=== PATIENT | female | born 2000 | race Caucasian/White ===

== ENCOUNTER 2025-02-18 17:03 | Emergency (ER) | payer SELFPAY ==
[2025-02-18 17:05] VITALS: BP 110/81; PULSE 86; RESP 16; TEMP 37.2; O2SAT 98
--- NOTE | 2025-02-18 17:17 | ED_ITS ---
HPI - Wound/Laceration General Chief Complaint: Wound/Laceration Stated Complaint: wound check Time Seen by Provider: 02/18/25 17:17 Source: patient Mode of arrival: ambulatory Limitations: no limitations History of Present Illness HPI narrative: 24-year-old female with a history of anxiety / depression had recurrent pilonidal abscess which was excised and a rubber catheter was placed from the pilonidal sinus into the pilonidal tract 1 week ago postprocedure the patient received antibiotics. Over the course of the last few days the drainage has decreased. The rubber catheter was supposed to be removed after 1 week. The patient does not want to go back to [facility] way she had her initial surgery. She presents to the ED for removal of the rubber catheter. No fever or chills. Onset (ago): day(s) ( Seven days) Location: other ( lower back) Body four view annotation: 2 1. pilonidal sinus opening which has been widened and measures 1-1/2 cm 2. rubber band passing from the pilonidal sinus opening and exits at the bottom of the pilonidal tract 3. the rubber band comes out at the bottom of the gluteal cleft. Patient tetanus UTD: Yes Review of Systems 2 Review of Systems: All systems reviewed & are unremarkable except as noted in HPI and below PMFSH Past Medical History Medical History (Updated 02/18/25 @ 17:46 by Raza Black MD) Anxiety and depression Chronic recurrent pilonidal cyst Exam 2 Narrative: vitals are stable Const: General: healthy appearing Nutritional Appearance: well nourished Orientation/consciousness: patient oriented x3 Limitations: no limitations HENMT: Head: normal to inspection Ears: external ears normal F heather/Nose/Sinus: Normal external nose present Face and sinus: normal facial exam Mouth: Yes Normal oral and palatal mucosa present Throat: posterior oropharynx normal Eyes: Conjunctivae: conjunctivae normal Pupils: Equal, round and reactive pupils present EOM: EOMs intact bilaterally Direct Ophthalmoscopy: no photophobia Neck: Neck: normal visual inspection, no lymphadenopathy and no meningeal signs Chest: Chest palpation & inspection: normal inspection of the chest Resp: Effort & Inspection: normal respiratory effort Auscultation: clear to auscultation bilaterally Cardio: Rate: regular rate Rhythm: regular rhythm GI: GI Palp: Yes Soft to palpation Auscultation: normal bowel sounds Back/Spine/Pelvis: Back: no CVA tenderness Skin: General skin exam: normal color Other: lower back has a 1.5 cm cutaneous ulcer . The ulcer is healthy and looks beefy red. a rubber-band passes through the pilonidal sinus opening and comes out at the bottom of the intergluteal cleft. Neuro: General: patient oriented x3, moves all extremities, no meningeal signs, no focal motor deficits and CN's II-XI intact bilaterally Cranial nerves: Yes Nystagmus not present Speech: normal speech Gait exam (Neuro): Normal gait present Extrem: General: normal to inspection and no clubbing, cyanosis or edema Psych: Mental Status: mental status grossly normal Affect: normal affect Attitude: cooperative Course Course Emergency Course: Status post Pilonidal abscess treatment-- the rubber band/drain passing through the pilonidal abscess is opened Vital Signs Vital signs: Vital Signs Temperature 37.2 C 02/18/25 17:05 Pulse Rate 86 02/18/25 17:05 Respiratory Rate 16 02/18/25 17:05 Blood Pressure 110/81 02/18/25 17:05 Pulse Oximetry 98 02/18/25 17:05 Oxygen Delivery Room Air 02/18/25 17:05 Temperature 37.2 C 02/18/25 17:05 Pulse Rate 86 02/18/25 17:05 Respiratory Rate 16 02/18/25 17:05 Blood Pressure 110/81 02/18/25 17:05 Pulse Oximetry 98 02/18/25 17:05 Oxygen Delivery Room Air 02/18/25 17:05 MDM - Wound/Laceration MDM Narrative Medical decision making narrative: status post pilonidal abscess treatment Differential Diagnosis Differential diagnosis: Likely abscess Discharge Plan Discharge Clinical Impression: Pilonidal abscess Patient Disposition: Home Condition: Stable Instructions: Antibiotic Form, Pilonidal Cyst Excision (DC) Patient Language: [place] Follow-up/Referrals: UNKNOWN,DOCTOR [Non-Staff] - Time of Disposition: 17:46
--- OUTSIDE RECORDS SUMMARY | 2025-02-18 17:42 | XMS_ITS | Encounter Summary ---
Author Organization [facility] Address [address] [place] [address] Care Team Providers Care Artificial Flowers Starcher Name Role Phone Flavio Barraganen Primary Care Provider Reason for Visit * Reason Onset Date Comments Medication Refill 02/17/2025 Encounter Details Date Type Department Care Team (Late st Contact Info) Description 02/17/[address] [facility] [place] [address] [place] [address] [facility] [address] [place] [address] Mild intermittent asthma with acute exacerbation; PTSD (post-traumatic stress disorder); SHANDRA (generalized anxiety disorder); Moderate episode of recurrent major depressive disorder (CMS/HCC) Social History Tobacco Use Types Packs/Day Years Used Date Smoking Tobacco: Unknown Feeling Safe Answer Date Recorded Are you in a relationship wi th someone who hurts you emotionally and/or physically? No 05/01/2024 Comments Unknown Sex and Gender Information Value Date Recorded Sex Assigned at Not on file Legal Sex Female 6:01 PM CDT Gender Identity Not on file Sexual Orientation Not on file documented as of this encounter Miscellaneous Notes * Telephone Encounter - Alexia Melton RN - 02/17/2025 4:05 PM CDT Disp Refills Start End albuterol sulfate HFA 90 mcg/actuation aerosol inhaler 8.5 Gram 3 10/22/2024 -- Sig - Route: Take 2 Puffs by inhalation every 6 hours as needed for Shortness of Breath. - Inhalation Disp Refills Start End sertraline (Zoloft) 50 mg tablet 90 Tablet 0 01/13/2025 -- Sig - Route: Take 1 Tablet (50 mg) by mouth daily. - Oral I have verified this refill request with current med list. Last office visit and next office visit are up-to-date. Recent Visits Date Type Provider Dept 01/13/25 Video Visit [facility] 11/24/24 Video Visit [facility] 11/20/24 Video Visit [facility] 10/22/24 Office Visit [facility] Showing recent visits within past 540 days with a meds authorizing provider and meeting all other requirements Future Appointments Date Type Provider Dept 07/16/25 Appointment Lizette Barragan DO [facility] Showing future appointments within next 365 days with a meds authorizing provider and meeting all other requirements Pending due to warning. documented in this encounter Plan of Treatment Upcoming Encounters Date Type Department Care Team (Late st Contact Info) Description 03/06/2025 11:00 AM CDT Video Visit [address] [phone] [place] [address] [phone] 07/16/2025 2:30 PM CDT Office Visit [address] [phone] Lizette Barragan DO [address] [place] [phone] documented as of this encounter Visit Diagnoses Diagnosis Mild intermittent asthma with acute exacerbation Unspecified asthma, with exacerbation PTSD (post-traumatic stress disorder) Posttraumatic stress disorder SHANDRA (generalized anxiety disorder) Generalized anxiety disorder Moderate episode of recurrent major depressive disorder (CMS/HCC) documented in this encounter Additional Health Concerns Assessment Noted Time PHQ-9 Depression Total Score: 1 11/24/19 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
--- OUTSIDE RECORDS SUMMARY | 2025-02-18 17:42 | XMS_ITS | Clinical Summary ---
Author Organization [facility] Address [address] [place] [address] Care Team Providers Care Transmitter Supervisor Name Role Phone None, Provider MD Primary Care Provider Unavaila ble Allergies No known active allergies Medications sulfamethoxazol e-trimethoprim (BACTRIM DS) 800-160 MG tablet Take 1 tablet by mouth 2 (two) times daily for 10 days. 20 tablet 02/12/2025 02/23/20 25 Active ketorolac (TORADOL) 10 MG tablet Take 1 tablet (10 mg total) by mouth every 6 (six) hours as needed for Pain. 20 tablet 02/09/2025 02/15/20 25 doxycycline hyclate (VIBRAMYCIN) 100 MG capsule Take 1 capsule (100 mg total) by mouth 2 (two) times daily for 7 days. 14 capsule 02/09/2025 02/17/20 25 ketorolac (TORADOL) 10 MG tablet Take 1 tablet (10 mg total) by mouth 4 (four) times daily as needed for Pain. 20 tablet 02/12/2025 02/18/20 25 Encounters Date Type Department Care Team Description 02/12/2025 12:50 PM CDT - 02/12/2025 7:07 PM CDT Emergency [facility] Emergency [address] [place] [address] Franco Godoy, SAW FILER Skin Problem Discharge Disposition: Home or Self Care (Routine Discharge) 02/12/2025 Travel 02/09/2025 8:02 AM CDT - 02/09/2025 9:59 AM CDT Emergency [facility] Emergency [address] [place] [address] Shun Ingram, RAPID EXTRACTOR OPERATOR Abscess Discharge Disposition: Home or Self Care (Routine Discharge) 02/09/2025 Travel from Last 3 Months Social History Tobacco Use Types Packs/Day Years Used Date Smoking Tobacco: Never Assessed Comments No Sex and Gender Information Value Date Recorded Sex Assigned at Female 02/09/2025 8:31 AM CDT Legal Sex Female 7:57 AM CDT Gender Identity Not on file Sexual Orientation Not on file Last Filed Vital Signs Vital Sign Reading Time Taken Comments Blood Pressure 121/75 02/12/2025 12:49 PM CDT Pulse 94 02/12/2025 6:45 PM CDT Temperature 37.2 C (99 F) 02/12/2025 12:49 PM CDT Respiratory Rate 20 02/12/2025 6:45 PM CDT Oxygen Saturation 96% 02/12/2025 6:45 PM CDT Inhaled Oxygen Concentration - - Weight 76.9 kg (169 lb 8.5 oz) 02/12/2025 12:49 PM CDT Height 170.2 cm (5' 7 ) 02/12/2025 12:49 PM CDT Body Mass Index 26.55 02/12/2025 12:49 PM CDT Plan of Treatment Health Maintenance Due Date Last Done Comments Cervical Cancer Screening Pap Smear (Age 21 to 29) Every 3 Years 2000 Cervical Cancer Screening 2000 Annual Physical 2003 HPV Vaccines (3 - 2-dose series) 12/18/2011 09/25/2011, 05/22/2011 Hepatitis C 2018 DTaP, Tdap and Td Vaccines (7 - Td or Tdap) 05/22/2021 05/22/2011, 05/17/2011, 05/22/2005, Additional history exists COVID-19 Vaccine ( season) 2024 Pneumococcal Vaccine: Pediatrics (0 to 5 Years) and At-Risk Patients (6 to 49 Years) Aged Out 2000, 2000 No longer eligibl e based on patient's age to complete this topic Hepatitis B Vaccines Completed 06/21/2004, 2000, 2000 Meningococcal Vaccine Aged Out 05/22/2011 No courtney david eligible based on patient's age to complete this topic Meningococcal B Vaccine Aged Out No l onger eligible based on patient's age to complete this topic RSV Immunizations Under 20 Months Aged Out No longer eligible based on patient's age to complete this topic Procedures Procedure Name Priority Date/Time Associated Diagnosis Comments CT PEL W CON STAT 02/12/2025 3:49 PM CDT HCG QUANT (SERUM)-CHORIONIC GONADOTROPIN STAT 02/12/2025 2:05 PM CDT COMPREHENSIVE METABOLIC PANEL STAT 02/12/2025 2:05 PM CDT CBC W/DIFF AUTOMATED STAT 02/12/2025 2:[address] PEL W CON STAT 02/09/2025 9:21 AM CDT HCG QUANT (SERUM)-CHORIONIC GONADOTROPIN STAT 02/09/2025 8:29 AM CDT BASIC METABOLIC PANEL STAT 02/09/2025 8:29 AM CDT CBC W/DIFF AUTOMATED STAT 02/09/2025 8:29 AM CDT from Last 3 Months Results * CT PEL W CON (02/12/2025 3:49 PM CDT) Only the most recent of2 resultswithin the time period is included. Anatomical Region Laterality Modality Pelvis Computed Tomogra phy 02/12/2025 4:36 PM CDT Impressions 02/12/2025 4:41 PM CDT IMPRESSION: 1. A 2.6 x 2.1 x 5.1 cm (previously 1.2 x 1 x 4 cm) peripherally enhancing collection is seen within the subcutaneous fat at the apex of the gluteal cleft. This finding is consistent with a pilonidal cyst/abscess and has increased in size since the prior study. Surrounding hazy fat stranding is likely related to reactive inflammation. 2. No other soft tissue collection is seen. 3. No CT evidence of osteomyelitis. Ordered By: FRANCO GODOY Interpreted By: Sheldon Gaytan MD, 02/12/2025 4:36 PM Narrative 02/12/2025 4:41 PM CDT [address] [address] Examination: CT PEL W CON Exam time: 02/12/2025 3:40 PM Clinical history: Pilonidal cyst, pain. Comparison: No comparison. Technique: Axial, coronal and sagittal CT images of the pelvis were obtained after administration of 100 mL of Isovue-370 without adverse event. A radiation dose lowering technique was used for this procedure, which may include, but is not limited to, dose reduction technique, automated exposure control, the use of iterative reconstruction, ALARA (As Low As Reasonably Achievable) techniques, and Image Gently techniques. Findings: A peripherally enhancing collection is identified within the subcutaneous fat located at the apex of the gluteal cleft. This finding measures 2.6 x 2.1 x 5.1 cm (previously 1.2 x 1 x 4 cm). There is surrounding hazy fat stranding that is likely related to reactive inflammation. No other soft tissue collection is seen. Osseous structures are intact with no CT evidence of osteomyelitis. No destructive bone lesion noted. The uterus and ovaries appear normal. Urinary bladder is unremarkable. No free fluid or lymphadenopathy is seen within the pelvis. Procedure Note Sheldon Gaytan MD - 02/12/2025 [facility] [address] [place], [place] [address] Examination: CT PEL W CON Exam time: 02/12/2025 3:40 PM Clinical history: Pilonidal cyst, pain. Comparison: No comparison. Technique: Axial, coronal and sagittal CT images of the pelvis wereobtained after administration of 100 mL of Isovue-370 without adverseevent. A radiation dose lowering technique was used for this procedure,which may include, but is not limited to, dose reduction technique,automated exposure control, the use of iterative reconstruction, ALARA (AsLow As Reasonably Achievable) techniques, and Image Gently techniques. Findings: A peripherally enhancing collection is identified within the subcutaneousfat located at the apex of the gluteal cleft. This finding measures 2.6 x2.1 x 5.1 cm (previously 1.2 x 1 x 4 cm). There is surrounding hazy fatstranding that is likely related to reactive inflammation. No other softtissue collection is seen. Osseous structures are intact with no CT evidence of osteomyelitis. Nodestructive bone lesion noted. The uterus and ovaries appear normal.Urinary bladder is unremarkable. No free fluid or lymphadenopathy is seenwithin the pelvis. IMPRESSION: 1. A 2.6 x 2.1 x 5.1 cm (previously 1.2 x 1 x 4 cm) peripherallyenhancing collection is seen within the subcutaneous fat at the apex ofthe gluteal cleft. This finding is consistent with a pilonidalcyst/abscess and has increased in size since the prior study. Surroundinghazy fat stranding is likely related to reactive inflammation. 2. No other soft tissue collection is seen. 3. No CT evidence of osteomyelitis. Ordered By: FRANCO GODOY Interpreted By: Sheldon Gaytan MD, 02/12/2025 4:36 PM us Franco Godoy CT Final Result * (ABNORMAL) COMPREHENSIVE METABOLIC PANEL (02/12/2025 2:05 PM CDT) SODIUM S/P/B 135(L) 136 - 145 MMOL/L 02/12/2025 2:43 PM CDT [facility] POTASSIUM S/P/B 4.1 3.5 - 5.1 MMOL/L 02/12/2025 2:43 PM CDT [facility] CHLORIDE S/P/B 106 97 - 115 MMOL/L 02/12/2025 2:43 PM CDT [facility] CO2 22.7 21.0 - 32.0 MMOL/L 02/12/2025 2:43 PM CDT [facility] GLUCOSE 88 74 - 106 MG/DL 02/12/2025 2:43 PM CDT [facility] BUN 13 7 - 18 MG/DL 02/12/2025 2:43 PM CDT [facility] CREATININE S/P/B 0.92 0.55 - 1.02 MG/DL 02/12/2025 2:43 PM CDT [facility] CALCIUM S/P/B 9.0 8.5 - 10.1 MG/DL 02/12/2025 2:43 PM T [facility] BILIRUBIN TOTAL S/P/B 0.4 0.2 - 1.0 MG/DL 02/12/2025 2:43 PM CDT [facility] ALKALINE PHOSPHATASE S/P/B 97 37 - 98 U/L 02/12/2025 2:43 PM CDT [facility] AST 16 15 - 37 U/L 02/12/2025 2:43 PM T [facility] ALT 16 13 - 56 U/L 02/12/2025 2:43 PM T [facility] TOTAL PROTEIN S/P/B 7.4 6.4 - 8.2 G/DL 02/12/2025 2:43 PM CDT [facility] ALBUMIN S/P/B 3.7 3.4 - 5.0 G/DL 02/12/2025 2:43 PM T [facility] ANION GAP 6.3 2.0 - 10.0 MMOL/L 02/12/2025 2:43 PM T [facility] OSMOLALITY (CALC) 280 MOSM/KG 025 2:43 PM T [facility] Comment:REFERENCE RANGE NOT ESTABLISHED GFR ESTIMATE 89(L) >90 ML/MIN/1. 73 M2 02/12/2025 2:43 PM T [facility] GFR NOTES GFR REFERENCE S: 02/12/2025 2:43 PM T [facility] Comment: THE ESTIMATED GFR IS CALCULATED USING THE 2020 CKD-EPI EQUATION. THE FOLLOWING CATEGORIES FOR GRADING RENAL FUNCTION ARE RECOMMENDED BY THE INTERNATIONAL SOCIETY OF NEPHROLOGY (KDIGO 2012 CLINICAL PRACTICE GUIDELINE). G1,NORMAL OR HIGH: >89 ml/min/1.73 m2 G2,MILDLY DECREASED: 60-89 ml/min/1.73 m2 G3A,MILDLY TO MODERATELY DECREASED: 45-59 ml/min/1.73 m2 G3B,MODERATELY TO SEVERELY DECREASED: 30-44 ml/min/1.73 m2 G4,SEVERELY DECREASED: 15-29 ml/min/1.73 m2 G5,KIDNEY FAILURE: <15 ml/min/1.73 m2 02/12/2025 2:05 PM CDT Franco Godoy NP LABORATORY Final Result Performing Organization Address [facility] de Phone Number [facility] [address] [place] [address], [phone] * HCG QUANT SERUM - CHORIONIC GONADOTROPIN () (02/12/2025 2:05 PM CDT) Only the most recent of2 resultswithin the time period is included. Pathologist [facility] HCG QUANTITATIVE <1 MIU/ML 02/13/20 2:43 PM CDT [facility] Comment: <5 IS NEGATIVE 5-25 IS BORDERLINE >25 IS POSITIVE ASSAY PERFORMED BY CHEMILUMINESCENCE METHODOLOGY USING SIEMENS Proximal Data [facility] [employer]. PATIENT RESULTS DETERMINED BY ASSAYS USING DIFFERENT MANUFACTURERS FOR METHODS MAY NOT BE COMPARABLE. 02/12/2025 2:05 PM CDT Franco Godoy NP LABORATORY Final Result Performing Organization Address [facility] de Phone Number [facility] [address] [place] [address], [phone] * (ABNORMAL) CBC W/DIFF AUTOMATED (02/12/2025 2:05 PM CDT) Only the most recent of2 resultswithin the time period is included. WBC 10.90(H) 4.00 - 10.80 x10'3/uL 02/12/2025 2:20 PM CDT [facility] RBC 4.47 4.10 - 5.40 x10'6/uL 02/12/2025 2:20 PM CDT [facility] HGB 13.0 12.0 - 16.0 G/DL 02/12/2025 2:20 PM CDT [facility] HCT 39.1 36.0 - 47.0 % 02/12/2025 2:20 PM CDT [facility] MCV 87.5 78.0 - 100.0 FL 02/12/2025 2:20 PM CDT [facility] MCH 29.1 27.0 - 31.0 PG 02/12/2025 2:20 PM CDT [facility] MCHC 33.2 33.0 - 36.0 G/DL 02/12/2025 2:20 PM CDT [facility] RDW 14.0 11.5 - 14.5 % 02/12/2025 2:20 PM CDT [facility] PLT 306 150 - 350 x10'3/uL 02/12/2025 2:20 PM CDT [facility] MPV 10.8(H) 7.4 - 10.4 FL 02/12/2025 2:20 PM CDT [facility] DIFFERENTIAL TYPE AUTOMATED DIFFERENTIAL 02/12/2025 2:20 PM CDT [facility] SEG NEUTROPHILS 71.3 % 2:20 PM CDT [facility] LYMPHOCYTES 15.0 % 02/12/2025 2:20 PM CDT [facility] MONOCYTES 7.0 % 02/12/2025 2:20 PM CDT [facility] EOSINOPHILS 5.8 % 02/12/2025 2:20 PM CDT [facility] BASOPHILS 0.7 % 02/12/2025 2:20 PM CDT [facility] IMMATURE GRANS % 0.2 % 02/13/20 2:20 PM CDT [facility] ABS. NEUTROPHILS 7.77 1.60 - 8.30 x10'3/uL 02/12/2025 2:20 PM CDT [facility] ABS. LYMPHOCYTES 1.64 0.80 - 4.70 x10'3/uL 02/12/2025 2:20 PM CDT [facility] ABS. MONOCYTES 0.76 0.00 - 1.50 x10'3/uL 02/12/2025 2:20 PM CDT [facility] ABS. EOSINOPHILS 0.63(H) 0.00 - 0.40 x10'3/uL 02/12/2025 2:20 PM CDT [facility] ABS. BASOPHILS 0.08 0.00 - 0.20 x10'3/uL 02/12/2025 2:20 PM CDT [facility] ABS. IMMATURE GRANULOCYTES 0.02 0.00 - 0.03 x10'3/uL 02/12/2025 2:20 PM CDT [facility] ABS. NUCLEATED RBC'S 0.00 0.00 - 0.01 x10'3/uL 02/12/2025 2:20 PM CDT [facility] NRBC % 0.0 % 02/12/2025 2:20 PM CDT [facility] 02/12/2025 2:05 PM CDT Franco Godoy NP LABORATORY Final Result [facility] [address] [place] [address], [id number] * (ABNORMAL) BASIC METABOLIC PANEL (02/09/2025 8:29 AM CDT) SODIUM S/P/B 140 136 - 145 MMOL/L 02/09/2025 9:08 AM CDT [facility] POTASSIUM S/P/B 3.8 3.5 - 5.1 MMOL/L 02/09/2025 9:08 AM CDT [facility] CHLORIDE S/P/B 105 97 - 115 MMOL/L 02/09/2025 9:08 AM [facility] CO2 23.3 21.0 - 32.0 MMOL/L 02/09/2025 9:08 AM [facility] GLUCOSE 91 74 - 106 MG/DL 02/09/2025 9:08 AM [facility] BUN 16 7 - 18 MG/DL 02/09/2025 9:08 AM [facility] CREATININE S/P/B 0.90 0.55 - 1.02 MG/DL 02/09/2025 9:08 AM T [facility] CALCIUM S/P/B 9.4 8.5 - 10.1 MG/DL 02/09/2025 9:08 AM [facility] ANION GAP 11.7(H) 2.0 - 10.0 MMOL/L 02/09/2025 9:08 AM [facility] OSMOLALITY (CALC) 291 MOSM/KG 025 9:08 AM [facility] Comment:REFERENCE RANGE NOT ESTABLISHED GFR ESTIMATE >90 >90 ML/MIN/1. 73 M2 02/09/2025 9:08 AM [facility] GFR NOTES GFR REFERENCE S: 02/09/2025 9:08 AM [facility] Comment: THE ESTIMATED GFR IS CALCULATED USING THE 2020 CKD-EPI EQUATION. THE FOLLOWING CATEGORIES FOR GRADING RENAL FUNCTION ARE RECOMMENDED BY THE INTERNATIONAL SOCIETY OF NEPHROLOGY (KDIGO 2012 CLINICAL PRACTICE GUIDELINE). G1,NORMAL OR HIGH: >89 ml/min/1.73 m2 G2,MILDLY DECREASED: 60-89 ml/min/1.73 m2 G3A,MILDLY TO MODERATELY DECREASED: 45-59 ml/min/1.73 m2 G3B,MODERATELY TO SEVERELY DECREASED: 30-44 ml/min/1.73 m2 G4,SEVERELY DECREASED: 15-29 ml/min/1.73 m2 G5,KIDNEY FAILURE: <15 ml/min/1.73 m2 02/09/2025 8:29 AM CDT Shun Ingram RAPID EXTRACTOR OPERATOR LABORATORY Final Resul t [facility] [address] [place] [address], [phone] from Last [address] [address] [facility] Care Teams Transmitter Supervisor Relationship Specialty Start Date End Date None, Provider, MD PCP - General UNKNOWN PHYSICIAN SPECIALTY 02/09/25
--- OUTSIDE RECORDS SUMMARY | 2025-02-18 17:42 | XMS_ITS | Encounter Summary ---
Author Organization [facility] Address [address] [place] [address] Care Team Providers Care Mailing Manager Name Role Phone Lizette Barragan DO Primary Care Provider Encounter Details Date Type Department Care Team (Late st Contact Info) Description 02/17/2025 External Device Data STL ABSTRACTION Provider, Abstract NO ADDRESS ON FILE Social History Tobacco Use Types Packs/Day Years [...] on file documented as of this encounter Plan of Treatment Upcoming Encounters Date Type Department Care Team (Late st Contact Info) Description 03/06/2025 11:00 AM CDT Video Visit [address] [place] [phone] Viry East, [facility] [id number] [place] [address] [place] [phone] 07/16/2025 2:30 PM CDT Office Visit [address] [place] [phone] Lizette [place] [address] [place] [phone] documented as of this encounter Visit Diagnoses Not on filedocumented in this encounter Additional Health Concerns Assessment Noted Time PHQ-9 Depression Total Score: 1 11/24/19 25 2:24 PM RAILROAD CONSTRUCTION DIRECTOR documented as of this encounter Care Teams Mailing Manager Relationship Specialty Start Date End Date Lizette Barragan [place] [id number] [phone] PCP - General Family Practice 10/22/24 documented as of this encounter
--- OUTSIDE RECORDS SUMMARY | 2025-02-18 17:42 | XMS_ITS | Encounter Summary ---
Author Organization [facility] Address [address] [place] [address] Care Team Providers Care Crop And Soil Technician Name Role Phone Lizette Barragan DO Primary Care Provider Reason for Visit * Reason Onset Date Comments Needs Orders Written 02/18/2025 Encounter Details Date Type Department Care Team (Late Contact Info) Description 02/18/2025 Telephone [facility] [address] [facility] [address] [place] [phone] Lizette Barragan [place] [id number] [place] [phone] Needs Orders Written Social History Tobacco Use Types Packs/Day Years [...] Description 03/06/2025 11:00 AM CDT Video Visit [facility] [address] [facility] [address] [place] [phone] Viry East, PUBLIC WEIGHER [address] [facility] [address] [place] [phone] 07/16/2025 2:30 PM CDT Office Visit [facility] [address] [facility] [address] [place] [phone] [place]ette Barragan [place] [id number] [phone] documented as of this encounter Visit Diagnoses Diagnosis PTSD (post-traumatic stress disorder) Posttraumatic stress disorder SHANDRA (generalized anxiety disorder) Generalized anxiety disorder Moderate episode of recurrent major depressive disorder (CMS/HCC) documented in this encounter Additional Health Concerns Assessment Noted Time PHQ-9 Depression Total Score: 1 11/24/19 25 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
--- OUTSIDE RECORDS SUMMARY | 2025-02-18 17:42 | XMS_ITS | Clinical Summary ---
Author Organization [facility] Address [address] [place] [address] Phone Care Team Providers Care Java Development Team Lead Name Role Phone Lizette Barragan Primary Care Provider Allergies No known active allergies Medications fluticasone propion-salmeter oL (ADVAIR HFA) 230-21 mcg/actuation HFA Aerosol InhalerIndicatio ns:Mild intermittent asthma with acute exacerbation Take 2 Puffs by inhalation every 12 hours. 12 Gram 3 4 Active montelukast (Singulair) 10 mg tabletIndication s:Mild intermittent asthma with acute exacerbation Take 1 Tablet (10 mg) by mouth daily at bedtime. 90 Tablet 4 Active propranoloL (INDERAL) 20 mg tabletIndication s:SHANDRA (generalized anxiety disorder) TAKE 1 TABLET(20 MG) BY MOUTH THREE TIMES DAILY 100 Tablet 3 5 Active traZODone (DESYREL) 50 mg tabletIndication s:Primary insomnia Take 1 Tablet (50 mg) by mouth nightly as needed for Insomnia. 30 Tablet 5 Active diazePAM (VALIUM) 5 mg tablet 5 mg. 5 Active busPIRone (BUSPAR) 10 mg tabletIndication s:PTSD (post-traumatic stress disorder),SHANDRA (generalized anxiety disorder) Take 1 Tablet (10 mg) by mouth 3 times daily as needed for Anxiety. 180 Tablet 5 Active albuterol sulfate HFA 90 mcg/actuation aerosol inhalerIndicatio ns:Mild intermittent asthma with acute exacerbation Take 2 Puffs by inhalation every 6 hours as needed for Shortness of Breath. 8.5 Gram 3 5 Active sertraline (Zoloft) 50 mg tabletIndication s:PTSD (post-traumatic stress disorder),SHANDRA (generalized anxiety disorder),Modera te episode of recurrent major depressive disorder (CMS/HCC) Take 1 Tablet (50 mg) by mouth daily. 90 Tablet 1 5 Active albuterol sulfate HFA 90 mcg/actuation aerosol inhalerIndicatio ns:Mild intermittent asthma with acute exacerbation Take 2 Puffs by inhalation every 6 hours as needed for Shortness of Breath. 8.5 Gram 3 4 025 Discontin ued(Reord er) sertraline (Zoloft) 50 mg tabletIndication s:PTSD (post-traumatic stress disorder),SHANDRA (generalized anxiety disorder),Modera te episode of recurrent major depressive disorder (CMS/HCC) Take 1 Tablet (50 mg) by mouth daily. 90 Tablet 5 025 Discontin ued(Reord er) Active Problems Problem Noted Date Diagnosed Date Pilonidal abscess 10/22/2024 Moderate episode of recurrent major depressive d isorder 10/22/2024 SHANDRA (generalized anxiety disorder) 10/22/2024 PTSD (post-traumatic stress disorder) 10/22/2024 Asthma with acute exacerbation 10/22/2024 Vaping nicotine dependence, non-tobacco product 10/22/2024 Resolved Problems Problem Noted Date Diagnosed Date Resolved Date Complex posttraumatic stress disorder 10/22/2024 10/22/2024 Mixed anxiety and depressive disorder 06/01/2020 10/22/2024 Encounters Date Type Department Care Team Description 02/18/[address] [place] [address] Lizette Barragan, Needs Orders Written 02/17/2025 External Device Data STL ABSTRACTION Provider, Abstract 02/17/[address] [place] [address] Viry East, SPORTS COORDINATOR Mild intermittent asthma with acute exacerbation; PTSD (post-traumatic stress disorder); SHANDRA (generalized anxiety disorder); Moderate episode of recurrent major depressive disorder (CMS/HCC) 02/03/2025 External Device Data STL ABSTRACTION Provider, Abstract 01/21/2025 External Device Data STL ABSTRACTION Provider, Abstract 01/13/2025 10:30 AM CDT Video Visit [address] [phone] Viyr East FNP PTSD (post-traumatic stress disorder) (Primary Dx); SHANDRA (generalized anxiety disorder); Moderate episode of recurrent major depressive disorder (CMS/HCC) 01/13/2025 External Device Data STL ABSTRACTION Provider, Abstract 01/13/2025 External Device Data STL ABSTRACTION Provider, Abstract 01/10/2025 External Device Data STL ABSTRACTION Provider, Abstract 01/09/2025 External Device Data STL ABSTRACTION Provider, Abstract 01/07/2025 External Device Data STL ABSTRACTION Provider, Abstract 01/07/2025 External Device Data STL ABSTRACTION Provider, Abstract 12/24/2024 External Device Data STL ABSTRACTION Provider, Abstract 12/09/2024 External Device Data STL ABSTRACTION Provider, Abstract 12/03/2024 Orders Only [address] [phone] Lizette Barragan DO Primary insomnia 12/03/[address] [phone] Lizette Barragan DO Provider Call 11/24/2024 2:30 PM CONTRACTING SPECIALIST Video Visit [address] [phone] Viry East FNP SHANDRA (generalized anxiety disorder) (Primary Dx); PTSD (post-traumatic stress disorder); Moderate episode of recurrent major depressive disorder (CMS/HCC); Vaping nicotine dependence, non-tobacco product; Primary insomnia 11/24/[address] [phone] Viry East FNP SHANDRA (generalized anxiety disorder) 11/20/2024 1:30 PM CONTRACTING SPECIALIST Video Visit [address] [phone] Viry East, SPORTS COORDINATOR SHANDRA (generalized anxiety disorder) (Primary Dx) from Last 3 Months Immunizations Immunization Administration Dates Next Due (ADACEL/BOOSTRIX)(10 YR UP) TDAP VACCINE, 0.5ML, IM 05/22/2011,05/17/2011 (GARDASIL)(9-45 YRS) HUMAN PAPILLOMAVIRUS VACCINE, TYPES 6, 11, 16, 18, QUADRIVALENT (4VHPV), 3 DOSE, IM 09/25/2011,05/22/2011 (INFANRIX)(6 WKS-6 YRS) DIPT HERIA, TETANUS TOXOIDS, AND ACCELLULAR PERTUSSIS VACCINE (DTAP), 0.5 ML IM 05/22/2005,06/21/2004,2000,06/29 (IPOL)(6 WKS AND UP) POLIOVI COLTON VACCINE, INACTIVATED (IPV), 3 DOSE, SUBCUT OR IM 06/21/2004,2000,2000 (M-M-R II/PRIORIX)(12 MO UP) MEASLES, MUMPS AND RUBELLA VIRUS VACCINE, 0.5 ML IM/SUBCUT 05/22/2005,06/21/2004 (MENACTRA)(9 MO-55 YR) MENIN GOCOCCAL POLYSACCHARIDE A, C, Y AND W-135 DIPTHERIA TOXOID CONJUGATE VACCINE, (PF), 0.5ML, IM 05/22/2011 (RECOMBIVAX HB/ENGERIX-B)(0- 19 YRS) HEPATITIS B VACCINE 5 MCG/0.5 ML OR 10 MCG/0.5 ML PED OR ADOL 3 DOSE (PF), IM 06/21/2004 (VARIVAX)(12 MOS UP)VARICELL A VIRUS VACCINE (PF) 0.5 ML, SUB CUT 09/18/2007,06/21/2004 HIB, Unspecified Formulation 06/21/2004 Hepatitis A Vaccine, Pediatr ic Dosage, Unspecified Formulatn 04/20/2008,09/18/2007 Hepatitis B and Haemophilus Influenzae Type B Vaccine (Hib-HepB)IM 2000,2000 Influenza Seasonal Unspecifi ed Formulation IM 09/25/2011 Influenza Seasonal Unspecifi ed Formulation PF IM 09/20/2016 Influenza Vaccine Nasal 10/22/2007,09/18/2007 Influenza Virus Vaccine, Spl it Virus (Incl. Purified Surface antigen)-retired CODE 09/12/2010,08/17/2009,08/24/2008 Pneumococcal 7-valent conjug ate vaccine IM 2000,2000 Social History Tobacco Use Types Packs/Day Years Used Date Smoking Tobacco: Unknown Tobacco Cessation:Counseling Given: Not Answered Feeling Safe Answer Date Recorded Are you [...] Sign Reading Time Taken Comments Blood Pressure 108/68 10/22/2024 12:48 PM CONTRACTING SPECIALIST Pulse 73 10/22/2024 12:48 PM CONTRACTING SPECIALIST Temperature 36.6 C (97.8 F) 05/01/2024 6:04 PM CDT Respiratory Rate 16 05/01/2024 6:04 PM CDT Oxygen Saturation 98% 10/22/2024 12:48 PM CONTRACTING SPECIALIST Inhaled Oxygen Concentration - - Weight 78.9 kg (174 lb) 01/13/2025 10:26 AM CDT Height 172.7 cm (5' 8 ) 01/13/2025 10:26 AM CDT Body Mass Index 26.46 01/13/2025 10:26 AM CDT Plan of Treatment Upcoming Encounters Date Type Department Care Team (Late st Contact Info) Description 03/06/2025 11:00 AM CDT Video Visit [facility] [id number] [place] [address] [place] [phone] Viry East, SPORTS COORDINATOR [address] [facility] [address] [place] [phone] 07/16/2025 2:30 PM CDT Office Visit [facility] [address] [place] [address] [place] [phone] Lizette Barragan DO 6[address]12[address] [place] [phone] Health Maintenance Due Date Last Done Comments HPV VACCINES (3 - 2-dose series) 12/18/2011 09/25/20 11, 05/22/2011 CERVICAL CANCER SCREENING 2021 HPV/Cotest (21-29) 2021 PAP SMEAR 2021 DTAP/TDAP/TD VACCINES (7 - T d or Tdap) 05/22/2021 05/22/2011, 05/17/2011, 05/22/2005, Additional history exists INFLUENZA VACCINE (#1) 2024 , 09/25/2011, 10/22/2007, Additional history exists HEPATITIS B VACCINES Completed 06/21/2004, 2000, 2000 Care Teams Java Development Team Lead Relationship Specialty Start Date End Date Lizette Barragan [place] [address] [place] [address] PCP - General Family Practice 10/22/24
--- OUTSIDE RECORDS SUMMARY | 2025-02-18 17:42 | XMS_ITS | Clinical Summary ---
Author Organization [facility] Address [address] [place] [address] Care Team Providers Care Ror Engineer Name Role Phone Viry East Primary Care Provider Source Comments [facility],non-owned Affiliates and Associated Physician Practices is amultiple site organization consisting of ambulatory clinics and hospital sitesin [place], [place], [place] and [place]. This disclosure is being madepursuant to the Care Everywhere program and may not contain all information available regarding this patient. Last updated 18.[facility] Allergies No known active allergies Medications * Be aware that medications may not be up to date on this document. Alwaysverify current medications with the patient. benzonatate (Tessalon) 200 MG capsule Take 1 (one) capsule by mouth 3 times daily as needed for Cough 30 capsule 08/27/2024 Active guaiFENesin ER 12hr (Mucinex) 600 MG tablet Take 1 (one) tablet by mouth every 12 hours 30 tablet 08/27/2024 Active methylPREDNISol one (Medrol Dosepak) 4 MG tablet Take by mouth as directed <!--EPICS-->F ollow package insert dosing for six day supply.<!--EP ICE--> 21 tablet 08/27/2024 Active Encounters Date Type Department Care Team Description 12/01/2024 8:15 AM OPTICAL EFFECTS CAMERA OPERATOR - 12/01/2024 9:27 AM OPTICAL EFFECTS CAMERA OPERATOR Emergency ER at [facility] [address] [address] Joseph Phillips MD Pain of left upper extremity; Contusion of left elbow, initial encounter Discharge Disposition: Home or Self Care 12/01/2024 Travel from Last 3 Months Social History Tobacco Use Types Packs/Day Years Used Date Smoking Tobacco: Never Assessed Comments Unknown Sex and Gender Information Value Date Recorded Sex Assigned at Not on file Legal Sex Female 3:42 PM CDT Gender Identity Not on file Sexual Orientation Not on file Last Filed Vital Signs Vital Sign Reading Time Taken Comments Blood Pressure 98/69 12/01/2024 9:00 AM OPTICAL EFFECTS CAMERA OPERATOR Pulse 77 12/01/2024 7:21 AM OPTICAL EFFECTS CAMERA OPERATOR Temperature 36.3 C (97.4 F) 12/01/2024 7:21 AM OPTICAL EFFECTS CAMERA OPERATOR Respiratory Rate 20 12/01/2024 7:21 AM OPTICAL EFFECTS CAMERA OPERATOR Oxygen Saturation 96% 12/01/2024 9:00 AM OPTICAL EFFECTS CAMERA OPERATOR Inhaled Oxygen Concentration - - Weight 77.6 kg (171 lb 1.2 oz) 12/01/2024 7:21 A M OPTICAL EFFECTS CAMERA OPERATOR Height 175.3 cm (5' 9 ) 12/01/2024 7:21 AM OPTICAL EFFECTS CAMERA OPERATOR Body Mass Index 25.26 12/01/2024 7:21 AM OPTICAL EFFECTS CAMERA OPERATOR Plan of Treatment Health Maintenance Due Date Last Done Comments PAP SMEAR 2000 HIV SCREENING 2015 HPV VACCINE (1 - 3-dose series) 2015 CHLAMYDIA/GONORRHEA SCREENING 2016 09/03/2013, 07/09/2007 HEPATITIS C SCREENING 04/11/2018 DTAP/TDAP/TD VACCINES (1 - Tdap) 2019 HEPATITIS B VACCINE (1 of 3 - 19+ 3-dose series) 2019 COVID-19 VACCINE ( season) 2024 DEPRESSION SCREENING 11/05/2024 INFLUENZA VACCINE (Season Ended) 2025 09/20/2016, 09/25/2011, 09/12/2010, Additional history exists ZOSTER VACCINE (1 of 2) 2050 HIB VACCINE Aged Out No longer eligi ble based on patient's age to complete this topic MENINGOCOCCAL (Group B) VACCINE SHARED DECISION-MAKING Aged Out No longer eligible based on patient's age to complete this topic MENINGOCOCCAL GROUPS A/C/Y/W VACCINE Aged Out No longer eligible based on patient's age to complete this topic PNEUMOCOCCAL VACCINE Aged Out No long er eligible based on patient's age to complete this topic Procedures Procedure Name Priority Date/Time Associated Diagnosis Comments XR HUMERUS LEFT 2VW OR MORE STAT 12/01/2024 7:57 AM OPTICAL EFFECTS CAMERA OPERATOR Pain of left upper extremity XR ELBOW LEFT 3VW OR MORE STAT 12/01/2024 7:57 AM OPTICAL EFFECTS CAMERA OPERATOR Pain of left upper extremity from Last 3 Months Results * XR Humerus Left 2Vw or More (12/01/2024 7:57 AM OPTICAL EFFECTS CAMERA OPERATOR) Anatomical Region Laterality Modality Upper Extremity Radiographic Jael ging 12/01/2024 8:20 AM OPTICAL EFFECTS CAMERA OPERATOR Impressions 12/01/2024 8:21 AM OPTICAL EFFECTS CAMERA OPERATOR IMPRESSION: No fracture or elbow joint effusion. > Interpreting Provider: Timi Nickerson MD on 12/01/2024 8:21 AM Narrative 12/01/2024 8:21 AM OPTICAL EFFECTS CAMERA OPERATOR PROCEDURE: XR HUMERUS LEFT 2VW OR MORE, XR ELBOW LEFT 3VW OR MORE, DATE/TIME OF EXAM: 12/01/2024 7:57 AM, LOCATION [facility] INDICATION: M79.602: Pain in left arm ADDITIONAL CLINICAL INFORMATION: Ordering Provider Reason For Exam: Technologist Note: Additional: COMPARISON None. INDICATION: Slipped on ice on Sunday. Landing on left side, humerus pain, elbow pain FINDINGS: Left humerus: No shaft fracture. The AC joint spacing is normal. The glenohumeral alignment is normal. Left elbow: The radiocapitellar alignment is normal. No chip avulsion fracture. No elbow joint effusion. No coronoid process fracture. Procedure Note Timi Nickerson MD - 12/01/2024 PROCEDURE: XR HUMERUS LEFT 2VW OR MORE, XR ELBOW LEFT 3VW OR MORE, DATE/TIME OF EXAM: 12/01/2024 7:57 AM, LOCATION [facility] INDICATION: M79.602: Pain in left arm ADDITIONAL CLINICAL INFORMATION: Ordering Provider Reason For Exam: Technologist Note: Additional: COMPARISON None. INDICATION: Slipped on ice on Sunday. Landing on left side, humeruspain, elbow pain FINDINGS: Left humerus: No shaft fracture. The AC joint spacing is normal. The glenohumeral alignment is normal. Left elbow: The radiocapitellar alignment is normal. No chip avulsion fracture. No elbow joint effusion. No coronoid process fracture. IMPRESSION: No fracture or elbow joint effusion. > Interpreting Provider: Timi Nickerson MD on 12/01/2024 8:21 AM Joseph Phillips MD DIAGNOSTIC IMAGING ORDERA BLES Final Result * XR Elbow Left 3Vw or More (12/01/2024 7:57 AM OPTICAL EFFECTS CAMERA OPERATOR) Anatomical Region Laterality Modality Upper Extremity Radiographic Jael ging 12/01/2024 8:20 AM OPTICAL EFFECTS CAMERA OPERATOR Impressions 12/01/2024 8:21 AM OPTICAL EFFECTS CAMERA OPERATOR IMPRESSION: No fracture or elbow joint effusion. > Interpreting Provider: Timi Nickerson MD on 12/01/2024 8:21 AM Narrative 12/01/2024 8:21 AM OPTICAL EFFECTS CAMERA OPERATOR PROCEDURE: XR HUMERUS LEFT 2VW OR MORE, XR ELBOW LEFT 3VW OR MORE, DATE/TIME OF EXAM: 12/01/2024 7:57 AM, LOCATION [facility] INDICATION: M79.602: Pain in left arm ADDITIONAL CLINICAL INFORMATION: Ordering Provider Reason For Exam: Technologist Note: Additional: COMPARISON None. INDICATION: Slipped on ice on Sunday. Landing on left side, humerus pain, elbow pain FINDINGS: Left humerus: No shaft fracture. The AC joint spacing is normal. The glenohumeral alignment is normal. Left elbow: The radiocapitellar alignment is normal. No chip avulsion fracture. No elbow joint effusion. No coronoid process fracture. Procedure Note Timi Nickerson MD - 12/01/2024 PROCEDURE: XR HUMERUS LEFT 2VW OR MORE, XR ELBOW LEFT 3VW OR MORE, DATE/TIME OF EXAM: 12/01/2024 7:57 AM, LOCATION [facility] INDICATION: M79.602: Pain in left arm ADDITIONAL CLINICAL INFORMATION: Ordering Provider Reason For Exam: Technologist Note: Additional: COMPARISON None. INDICATION: Slipped on ice on Sunday. Landing on left side, humeruspain, elbow pain FINDINGS: Left humerus: No shaft fracture. The AC joint spacing is normal. The glenohumeral alignment is normal. Left elbow: The radiocapitellar alignment is normal. No chip avulsion fracture. No elbow joint effusion. No coronoid process fracture. IMPRESSION: No fracture or elbow joint effusion. > Interpreting Provider: Timi Nickerson MD on 12/01/2024 8:21 AM us Joseph Phillips MD DIAGNOSTIC IMAGING ORDERA BLES Final Result from Last 3 Months Care Teams Ror Engineer Relationship Specialty Start Date End Date Viry East [address] [facility] [address] [place] [address] PCP - General 12/01/24
== END 2025-02-18 18:06 | disposition home or self-care (01) ==
PROVIDERS: Emergency Provider Internal Medicine Critical Care Medicine; PCP Internal Medicine
DX: L05.01 Pilonidal cyst with abscess (principal)
CPT/HCPCS: 99282

== ENCOUNTER 2025-02-27 21:50 | Emergency (ER) | payer BC, SELFPAY ==
--- NOTE | ~2025-02-27 | XR_ITS ---
XR chest 1V portable Ordering provider: Jeff Diamond MD History: 24 years Female with . increased SOB. HX OF ASTHMA. . Comparison: None. FINDINGS: MEDIASTINUM: The cardiac silhouette is not enlarged. LUNGS: No infiltrates, effusions or pneumothorax. OTHER: No free air under the diaphragm. IMPRESSION: No acute cardiopulmonary pathology. Reviewed, dictated and finalized at location A.
[2025-02-27 21:52] VITALS: BP 135/94; PULSE 88; RESP 30; TEMP 35.9; O2SAT 96
--- OUTSIDE RECORDS SUMMARY | 2025-02-27 21:53 | XMS_ITS | Clinical Summary ---
Author Organization [facility] Address [address] [place] [address] Phone Care Team Providers Care Nutrition Representative Name Role Phone Lizette Barragan Primary Care [...] Encounters Date Type Department Care Team Description 02/24/[address] [place] [phone] Lizette Barragan DO Medication Problem 02/18/2025 Telephone [facility] [address] [facility] [address] [place] [phone] Lizette Barragan DO Needs Orders Written 02/17/2025 External Device Data STL ABSTRACTION Provider, Abstract 02/17/2025 Refill [facility] [address] [facility] [address] [place] [phone] Viry East, MEDICAID PLAN COMPLIANCE DIRECTOR Mild intermittent asthma with acute exacerbation; PTSD (post-traumatic stress disorder); SHANDRA (generalized anxiety disorder); Moderate episode of recurrent major depressive disorder ([facility]/HCC) 02/03/2025 External Device Data STL ABSTRACTION Provider, Abstract 01/21/2025 External Device Data STL ABSTRACTION Provider, Abstract 01/13/2025 10:30 AM CDT Video Visit [facility] [address] [place] [address] [address] [place] [address] Viry East, CARLOS MANUEL PTSD (post-traumatic stress disorder) (Primary Dx); SHANDRA [...] STL ABSTRACTION Provider, Abstract 12/03/2024 Orders Only [address] [place] [phone] Lizette Barragan DO Primary insomnia 12/03/[address] [place] [phone] Lizette Barragan DO Provider Call from Last 3 Months Immunizations Immunization Administration [...] Comments Blood Pressure 108/68 10/22/2024 12:48 PM BOX ORDER PERSON Pulse 73 10/22/2024 12:48 PM BOX ORDER PERSON Temperature 36.6 C (97.8 F) 05/01/2024 6:04 PM CDT Respiratory Rate 16 05/01/2024 6:04 PM CDT Oxygen Saturation 98% 10/22/2024 12:48 PM BOX ORDER PERSON Inhaled Oxygen Concentration - - Weight 78.9 kg (174 lb) 01/13/2025 10:26 AM CDT Height 172.7 cm (5' 8 ) 01/13/2025 10:26 AM CDT Body Mass Index 26.46 01/13/2025 10:26 AM CDT Plan of Treatment Upcoming Encounters Date Type Department Care Team (Late st Contact Info) Description 03/06/2025 11:00 AM CDT Video Visit [address] [place] [phone] Viry East, [facility] [id number] [place] [address] [place] [phone] 07/16/2025 2:30 PM CDT Office Visit [address] [place] [phone] Lizette Barr[place] [address] [place] [phone] Health Maintenance Due Date Last Done Comments HPV VACCINES (3 - 2-dose series) 12/18/2011 09/25/20 11, 05/22/2011 CERVICAL CANCER SCREENING 2021 HPV/Cotest (21-29) 2021 PAP SMEAR 2021 DTAP/TDAP/TD VACCINES (7 - T d or Tdap) 05/22/2021 05/22/2011, 05/17/2011, 05/22/2005, Additional history exists INFLUENZA VACCINE (#1) 2024 6, 09/25/2011, 10/22/2007, Additional history exists HEPATITIS B VACCINES Completed 06/21/2004, 2000, 2000 Care Teams Nutrition Representative Relationship Specialty Start Date End Date Lizette Barr[place] [address] [phone] PCP - General Family Practice 10/22/24
--- OUTSIDE RECORDS SUMMARY | 2025-02-27 21:53 | XMS_ITS | Clinical Summary ---
Author Organization [facility] Address [address] [place] [address] Care Team Providers Care Computer Game Designer Name Role Phone None, Provider MD Primary Care Provider Unavaila ble Allergies No known active allergies Medications ketorolac (TORADOL) 10 MG tablet Take 1 [...] for Pain. 20 tablet 02/12/2025 02/18/20 25 sulfamethoxazol e-trimethoprim (BACTRIM DS) 800-160 MG tablet Take 1 tablet by mouth 2 (two) times daily for 10 days. 20 tablet 02/12/2025 02/23/20 25 Encounters Date Type Department Care Team Description 02/12/2025 12:50 PM CDT - 02/12/2025 7:07 PM CDT Emergency [facility] Emergency [address] [place] [address] Franco Godoy, ABRASIVE BAND WINDER Skin Problem Discharge Disposition: Home or Self Care (Routine Discharge) 02/12/2025 Travel 02/09/2025 8:02 AM CDT - 02/09/2025 9:59 AM CDT Emergency [facility] Emergency [address] [place] [address] Shun Ingram, CRULLER MAKER Abscess Discharge Disposition: Home or Self Care [...] 4:36 PM Narrative 02/12/2025 4:41 PM CDT [facility] [address] [place], [place] [address] Examination: CT PEL W CON Exam time: [...] Procedure Note Sheldon Gaytan MD - 02/12/2025 [facility] [address] [place], [place] [address] Examination: CT PEL W CON Exam time: [...] MD, 02/12/2025 4:36 PM us Franco Godoy ABRASIVE BAND WINDER CT Final Result * (ABNORMAL) COMPREHENSIVE METABOLIC PANEL (02/12/2025 2:05 PM CDT) SODIUM S/P/B 135(L) 136 - 145 MMOL/L 02/12/2025 2:43 PM CDT [facility] POTASSIUM S/P/B 4.1 3.5 - 5.1 MMOL/L 02/12/2025 2:43 PM CDT [facility] CHLORIDE S/P/B 106 97 - 115 MMOL/L 02/12/2025 2:43 PM CDT [facility] CO2 22.7 21.0 - 32.0 MMOL/L 02/12/2025 2:43 PM CDT [facility] GLUCOSE 88 74 - 106 MG/DL 02/12/2025 2:43 PM CDT [facility] BUN 13 7 - 18 MG/DL 02/12/2025 2:43 PM CDT [facility] CREATININE S/P/B 0.92 0.55 - 1.02 MG/DL 02/12/2025 2:43 PM CDT [facility] CALCIUM S/P/B 9.0 8.5 - 10.1 MG/DL 02/12/2025 2:43 PM T [facility] BILIRUBIN TOTAL S/P/B 0.4 0.2 - 1.0 MG/DL 02/12/2025 2:43 PM CDT [facility] ALKALINE PHOSPHATASE S/P/B 97 37 - 98 U/L 02/12/2025 2:43 PM CDT [facility] AST 16 15 - 37 U/L 02/12/2025 2:43 PM T [facility] ALT 16 13 - 56 U/L 02/12/2025 2:43 PM T [facility] TOTAL PROTEIN S/P/B 7.4 6.4 - 8.2 G/DL 02/12/2025 2:43 PM CDT [facility] ALBUMIN S/P/B 3.7 3.4 - 5.0 G/DL 02/12/2025 2:43 PM T [facility] ANION GAP 6.3 2.0 - 10.0 MMOL/L 02/12/2025 2:43 PM T [facility] OSMOLALITY (CALC) 280 MOSM/KG 025 2:43 PM T [facility] Comment:REFERENCE RANGE NOT ESTABLISHED GFR ESTIMATE 89(L) >90 ML/MIN/1. 73 M2 02/12/2025 2:43 PM T [facility] GFR NOTES GFR REFERENCE S: 02/12/2025 2:43 PM T [facility] Comment: THE ESTIMATED GFR IS CALCULATED [...] NP LABORATORY Final Result Performing Organization Address [facility] de Phone Number [facility] [address] [place] [address], [phone] * HCG QUANT SERUM - CHORIONIC GONADOTROPIN () (02/12/2025 2:05 PM CDT) Only the most recent of2 resultswithin the time period is included. HCG QUANTITATIVE <1 MIU/ML 02/13/20 2:43 PM CDT [facility] Comment: <5 IS NEGATIVE 5-25 IS BORDERLINE >25 IS POSITIVE ASSAY PERFORMED BY CHEMILUMINESCENCE METHODOLOGY USING SIEMENS DIMENSION VISTA REAGENT. PATIENT RESULTS DETERMINED BY ASSAYS USING DIFFERENT MANUFACTURERS FOR METHODS MAY NOT BE COMPARABLE. 02/12/2025 2:05 PM CDT Franco Godoy NP LABORATORY Final Result Performing Organization Address [facility] de Phone Number [facility] [address] [place] [address], [phone] * (ABNORMAL) CBC W/DIFF AUTOMATED (02/12/2025 2:05 PM CDT) Only the most recent of2 resultswithin the time period is included. WBC 10.90(H) 4.00 - 10.80 x10'3/uL 02/12/2025 2:20 PM CDT [facility] RBC 4.47 4.10 - 5.40 x10'6/uL 02/12/2025 2:20 PM CDT [facility] HGB 13.0 12.0 - 16.0 G/DL 02/12/2025 2:20 PM CDT [facility] HCT 39.1 36.0 - 47.0 % 02/12/2025 2:20 PM CDT [facility] MCV 87.5 78.0 - 100.0 FL 02/12/2025 2:20 PM CDT [facility] MCH 29.1 27.0 - 31.0 PG 02/12/2025 2:20 PM CDT [facility] MCHC 33.2 33.0 - 36.0 G/DL 02/12/2025 2:20 PM CDT [facility] RDW 14.0 11.5 - 14.5 % 02/12/2025 2:20 PM CDT [facility] PLT 306 150 - 350 x10'3/uL 02/12/2025 2:20 PM CDT [facility] MPV 10.8(H) 7.4 - 10.4 FL 02/12/2025 2:20 PM CDT [facility] DIFFERENTIAL TYPE AUTOMATED DIFFERENTIAL 02/12/2025 2:20 PM CDT [facility] SEG NEUTROPHILS 71.3 % 2:20 PM CDT [facility] LYMPHOCYTES 15.0 % 02/12/2025 2:20 PM CDT [facility] MONOCYTES 7.0 % 02/12/2025 2:20 PM CDT [facility] EOSINOPHILS 5.8 % 02/12/2025 2:20 PM CDT [facility] BASOPHILS 0.7 % 02/12/2025 2:20 PM CDT [facility] IMMATURE GRANS % 0.2 % 02/13/20 2:20 PM CDT [facility] ABS. NEUTROPHILS 7.77 1.60 - 8.30 x10'3/uL 02/12/2025 2:20 PM CDT [facility] ABS. LYMPHOCYTES 1.64 0.80 - 4.70 x10'3/uL 02/12/2025 2:20 PM CDT [facility] ABS. MONOCYTES 0.76 0.00 - 1.50 x10'3/uL 02/12/2025 2:20 PM CDT [facility] ABS. EOSINOPHILS 0.63(H) 0.00 - 0.40 x10'3/uL 02/12/2025 2:20 PM CDT [facility] ABS. BASOPHILS 0.08 0.00 - 0.20 x10'3/uL 02/12/2025 2:20 PM CDT [facility] ABS. IMMATURE GRANULOCYTES 0.02 0.00 - 0.03 x10'3/uL 02/12/2025 2:20 PM CDT [facility] ABS. NUCLEATED RBC'S 0.00 0.00 - 0.01 x10'3/uL 02/12/2025 2:20 PM CDT [facility] NRBC % 0.0 % 02/12/2025 2:20 PM CDT [facility] 02/12/2025 2:05 PM CDT us Franco Godoy NP LABORATORY Final Result [facility] [address] [place] [id number], [phone] * (ABNORMAL) BASIC METABOLIC PANEL (02/09/2025 8:29 AM CDT) SODIUM S/P/B 140 136 - 145 MMOL/L 02/09/2025 9:08 AM CDT [facility] POTASSIUM S/P/B 3.8 3.5 - 5.1 MMOL/L 02/09/2025 9:08 AM CDT [facility] CHLORIDE S/P/B 105 97 - 115 MMOL/L 02/09/2025 9:08 AM CDT [facility] CO2 23.3 21.0 - 32.0 MMOL/L 02/09/2025 9:08 AM [facility] GLUCOSE 91 74 - 106 MG/DL 02/09/2025 9:08 AM [facility] BUN 16 7 - 18 MG/DL 02/09/2025 9:08 AM [facility] CREATININE S/P/B 0.90 0.55 - 1.02 MG/DL 02/09/2025 9:08 AM T [facility] CALCIUM S/P/B 9.4 8.5 - 10.1 MG/DL 02/09/2025 9:08 AM T [facility] ANION GAP 11.7(H) 2.0 - 10.0 MMOL/L 02/09/2025 9:08 AM [facility] OSMOLALITY (CALC) 291 MOSM/KG 025 9:08 AM [facility] Comment:REFERENCE RANGE NOT ESTABLISHED GFR ESTIMATE >90 >90 ML/MIN/1. 73 M2 02/09/2025 9:08 AM [facility] GFR NOTES GFR REFERENCE S: 02/09/2025 9:08 AM [facility] Comment: THE ESTIMATED GFR IS CALCULATED [...] m2 02/09/2025 8:29 AM CDT Shun Ingram CRULLER MAKER LABORATORY Final Resul t [facility] [address] [place] [address], [phone] from Last [address] [place] [address] [facility] Care Teams Computer Game Designer Relationship Specialty Start Date End Date None, Provider, MD PCP - General UNKNOWN PHYSICIAN SPECIALTY 02/09/25
--- OUTSIDE RECORDS SUMMARY | 2025-02-27 21:53 | XMS_ITS | Clinical Summary ---
Author Organization [facility] Address [address] [place] [address] Care Team Providers Care Career Technical Education Teacher Name Role Phone Viry East Primary Care Provider [phone] Source Comments [facility],non-owned Affiliates and Associated Physician Practices is amultiple site organization consisting of ambulatory clinics and hospital sitesin [place], [place], [place] and [place]. This disclosure is being madepursuant to the Care Everywhere program and may not contain all information available regarding this patient. Last updated 18.[facility] Allergies No known active allergies Medications * [...] Department Care Team Description 12/01/2024 8:15 AM TELECOMMUNICATION ENGINEER - 12/01/2024 9:27 AM TELECOMMUNICATION ENGINEER Emergency ER at [facility] [address] [address] Joseph Phillips MD Pain of left upper [...] Comments Blood Pressure 98/69 12/01/2024 9:00 AM TELECOMMUNICATION ENGINEER Pulse 77 12/01/2024 7:21 AM TELECOMMUNICATION ENGINEER Temperature 36.3 C (97.4 F) 12/01/2024 7:21 AM TELECOMMUNICATION ENGINEER Respiratory Rate 20 12/01/2024 7:21 AM TELECOMMUNICATION ENGINEER Oxygen Saturation 96% 12/01/2024 9:00 AM TELECOMMUNICATION ENGINEER Inhaled Oxygen Concentration - - Weight 77.6 kg (171 lb 1.2 oz) 12/01/2024 7:21 A M TELECOMMUNICATION ENGINEER Height 175.3 cm (5' 9 ) 12/01/2024 7:21 AM TELECOMMUNICATION ENGINEER Body Mass Index 25.26 12/01/2024 7:21 AM TELECOMMUNICATION ENGINEER Plan of Treatment Health Maintenance Due Date [...] 2VW OR MORE STAT 12/01/2024 7:57 AM TELECOMMUNICATION ENGINEER Pain of left upper extremity XR ELBOW LEFT 3VW OR MORE STAT 12/01/2024 7:57 AM TELECOMMUNICATION ENGINEER Pain of left upper extremity from Last 3 Months Results * XR Humerus Left 2Vw or More (12/01/2024 7:57 AM TELECOMMUNICATION ENGINEER) Anatomical Region Laterality Modality Upper Extremity Radiographic Jael ging 12/01/2024 8:20 AM TELECOMMUNICATION ENGINEER Impressions 12/01/2024 8:21 AM TELECOMMUNICATION ENGINEER IMPRESSION: No fracture or elbow joint effusion. > Interpreting Provider: Timi Nickerson MD on 12/01/2024 8:21 AM Narrative 12/01/2024 8:21 AM TELECOMMUNICATION ENGINEER PROCEDURE: XR HUMERUS LEFT 2VW OR MORE, XR ELBOW LEFT 3VW OR MORE, DATE/TIME OF EXAM: 12/01/2024 7:57 AM, LOCATION [facility] INDICATION: M79.602: Pain in left arm [...] DATE/TIME OF EXAM: 12/01/2024 7:57 AM, LOCATION [facility] INDICATION: M79.602: Pain in left arm [...] Left 3Vw or More (12/01/2024 7:57 AM TELECOMMUNICATION ENGINEER) Anatomical Region Laterality Modality Upper Extremity Radiographic Jael ging 12/01/2024 8:20 AM TELECOMMUNICATION ENGINEER Impressions 12/01/2024 8:21 AM TELECOMMUNICATION ENGINEER IMPRESSION: No fracture or elbow joint effusion. > Interpreting Provider: Timi Nickerson MD on 12/01/2024 8:21 AM Narrative 12/01/2024 8:21 AM TELECOMMUNICATION ENGINEER PROCEDURE: XR HUMERUS LEFT 2VW OR MORE, XR ELBOW LEFT 3VW OR MORE, DATE/TIME OF EXAM: 12/01/2024 7:57 AM, LOCATION [facility] INDICATION: M79.602: Pain in left arm [...] DATE/TIME OF EXAM: 12/01/2024 7:57 AM, LOCATION [facility] INDICATION: M79.602: Pain in left arm [...] Result from Last 3 Months Care Teams Career Technical Education Teacher Relationship Specialty Start Date End Date Viry East [address] [facility] [address] [place] [address] PCP - General 12/01/24
[2025-02-27] MEDS: ALBUTEROL SULFATE NEB 2.5 MG/3 ML INH INHALATION (21:55)
[2025-02-27] MEDS: methylPREDNISolone SOD SUCC 125 MG VIAL IM (22:10)
[2025-02-27] MEDS: ALBUTEROL SULFATE NEB 2.5 MG/3 ML INH 10 MG INHALATION (22:12)
--- NOTE | 2025-02-27 22:20 | ED.ASTHMA ---
HPI - Asthma General Chief Complaint: Asthma Stated Complaint: asthma attack Time Seen by Provider: 02/27/25 21:58 Source: patient and family Mode of arrival: ambulatory Limitations: no limitations History of Present Illness HPI Narrative: patient is a 24-year-old female with asthma exacerbation and flare. She has run out of her Flovent. She has shortness of breath and cough. She presents to the emergency room in distress. MD complaint: asthma attack and shortness of breath Onset (ago): hour(s) ( /) Severity: moderate and similar to prior Context: ran out of meds Associated symptoms: productive cough and hemoptysis Asthma History: childhood onset and history of frequent attacks Treatments Prior to Arrival: inhaled bronchodilator Related Data Current Asthma Therapy: inhaled bronchodilator and inhaled steroid ( patient out of this medication) Allergies Allergy/AdvReac Type Severity Reaction Status Date / Time No Known Allergies Allergy Verified 02/27/25 22:07 Review of Systems Review of Systems: All systems reviewed & are unremarkable except as noted in HPI and below Constitutional: Constitutional: Reports no additional constitutional complaints Eyes: Eyes: Reports no additional eye complaints ENT: Reports system reviewed and no additional complaints, except as documented Cardiovascular: Cardiovascular: Reports no additional cardiovascular complaints Respiratory: Respiratory: Reports no additional respiratory complaints Gastrointestinal: Gastrointestinal: Reports no additional gastrointestinal complaints Genitourinary: Genitourinary: Reports no additional female genitourinary complaints Musculoskeletal: Musculoskeletal: Reports no additional musculoskeletal complaints Integumentary/Breasts: Skin/Breast: Reports system reviewed and no additional complaints, except as docu Neurologic: Reports system reviewed and no additional complaints, except as documented Psychiatric: Psychiatric: Reports no additional psychiatric complaints Endocrine: Endocrine: Reports no additional endocrine complaints Hematologic/Lymphatic: Hematologic/Lymphatic: Reports no additional hematologic/lymphatic complaints Allergic/Immunologic: Allergic/Immunologic: Reports no additional allergic/immunologic complaints PMFSH Past Medical History Medical History Anxiety and depression Chronic recurrent pilonidal cyst Exam Const: General: ill appearing Nutritional Appearance: well nourished Orientation/consciousness: patient oriented x3 Limitations: no limitations Other: patient presents to the emergency room with difficulty breathing and distress due to her asthma HENMT: Head: normal to inspection Ears: external ears normal Face/Nose/Sinus: Normal external nose present Eyes: Conjunctivae: conjunctivae normal Pupils: Equal, round and reactive pupils present EOM: EOMs intact bilaterally Neck: Neck: normal visual inspection Chest: Chest palpation & inspection: normal inspection of the chest Resp: Effort & Inspection: normal respiratory effort and not labored Auscultation: clear to auscultation bilaterally and no crackles Cardio: Rate: regular rate Rhythm: regular rhythm Heart sounds: no murmurs GI: Auscultation: normal bowel sounds and bowel sounds present : General: Yes bladder normal to palpation Back/Spine/Pelvis: Back: no CVA tenderness Other: right ankle and foot are tender to palpation; no ecchymosis or external fracture seen; chest x-ray shows negative findings Skin: General skin exam: normal color Lesions: no lesions Wounds: no wounds Neuro: General: patient oriented x3 Cranial nerves: Yes Nystagmus not present Speech: normal speech Extrem: General: normal to inspection Psych: Mental Status: mental status grossly normal Affect: normal affect Attitude: cooperative Course Vital Signs Vital signs: Vital Signs Oxygen Delivery Room Air 02/27/25 21:50 Temperature 35.9 C L 02/27/25 21:52 Pulse Rate 103 H 02/27/25 23:25 Respiratory Rate 18 02/27/25 23:25 Blood Pressure 99/66 L 02/27/25 23:25 Pulse Oximetry 98 02/27/25 23:25 Oxygen Delivery Room Air 02/27/25 23:25 MDM - Asthma MDM Narrative Medical decision making narrative: patient is a 24-year-old female with shortness of breath and asthma exacerbation. We have given albuterol short and long time frames. We gave her steroids IM. She is doing much better and we will get her home medications situated with the pharmacy. Lab Data Attestation: I reviewed the patient's lab results. Labs: Lab Results 02/27/25 Range/Units 22:00 Influenza A (RT-PCR) Negative (Negative) Influenza B (RT-PCR) Negative (Negative) RSV (RT-PCR) Negative (Negative) SARS-CoV-2 RNA (RT-PCR) Negative (Negative) Imaging Data Attestation: I personally reviewed and interpreted this imaging study as follows: Radiologist's impression: Chest x-ray was negative for acute process Discharge Plan Discharge Clinical Impression: Asthma with acute exacerbation Patient Disposition: Home Condition: Stable Instructions: Antibiotic Form, Asthma (ED) Patient Language: Welsh Prescriptions: New fluticasone propionate 110 mcg/actuation HFA aerosol inhaler 1 puff inhalation BID Qty: 12 0RF albuterol sulfate [Ventolin HFA] 90 mcg/actuation HFA aerosol inhaler 2 inh inhalation QID PRN (Reason: shortness of breath or wheezing) Qty: 6.7 0RF prednisone 20 mg tablet 40 mg PO DAILY 4 Days Qty: 8 0RF azithromycin 250 mg tablet See Rx Instructions .ROUTE .COMPLEX Qty: 6 0RF Rx Instructions: For 250 mg dose pack: take 500 mg today (day 1), then 250 mg for 4 days (days 2-5) albuterol sulfate 2.5 mg /3 mL (0.083 %) solution for nebulization 2.5 mg inhalation Q6H Qty: 75 0RF Follow-up/Referrals: Josh Sterling MD [Primary Care Provider] - Time of Disposition: 23:11
[2025-02-27 22:46] LABS: Influenza A QL RT-PCR Negative (Negative); Influenza B QL RT-PCR Negative (Negative); RSV RNA, RT-PCR Negative (Negative); SARS-CoV-2 RNA PCR Negative (Negative)
[2025-02-27 23:25] VITALS: BP 99/66; PULSE 103; RESP 18; O2SAT 98
== END 2025-02-27 23:25 | disposition home or self-care (01) ==
PROVIDERS: Emergency Provider Emergency Medicine; PCP Internal Medicine
DX: J45.901 Unspecified asthma with (acute) exacerbation (principal); Z20.822 Contact with and (suspected) exposure to COVID-19
CPT/HCPCS: 71045; 87637; 96372; 99283; J2919

== ENCOUNTER 2025-03-03 07:01 | Emergency (ER) | payer BC, SELFPAY ==
[2025-03-03 07:02] VITALS: BP 120/88; PULSE 85; RESP 18; TEMP 36.7; O2SAT 98
--- OUTSIDE RECORDS SUMMARY | 2025-03-03 07:03 | XMS_ITS | Clinical Summary ---
Author Organization [facility] Address [address] [place] [address] Care Team Providers Care Lead Technologist In Cytogenetics Name Role Phone Viry East Primary Care Provider [phone] Source Comments [facility],non-owned Affiliates and Associated Physician Practices is amultiple site organization consisting of ambulatory clinics and hospital sitesin [place], [place], [place] and [place]. This disclosure is being madepursuant to the Care Everywhere program and may not contain all information available regarding this patient. Last updated 18.[facility] Allergies No known active allergies Medications * [...] day supply.<!--EP ICE--> 21 tablet 08/27/2024 Active Social History Tobacco Use Types Packs/Day Years Used Date Smoking Tobacco: Never Assessed Comments Unknown Sex and Gender Information Value Date Recorded Sex Assigned at Not on file Legal Sex Female 3:42 PM CDT Gender Identity Not on file Sexual Orientation Not on file Last Filed Vital Signs Vital Sign Reading Time Taken Comments Blood Pressure 98/69 12/01/2024 9:00 AM HEARING AID ASSEMBLY SUPERVISOR Pulse 77 12/01/2024 7:21 AM HEARING AID ASSEMBLY SUPERVISOR Temperature 36.3 C (97.4 F) 12/01/2024 7:21 AM HEARING AID ASSEMBLY SUPERVISOR Respiratory Rate 20 12/01/2024 7:21 AM HEARING AID ASSEMBLY SUPERVISOR Oxygen Saturation 96% 12/01/2024 9:00 AM HEARING AID ASSEMBLY SUPERVISOR Inhaled Oxygen Concentration - - Weight 77.6 kg (171 lb 1.2 oz) 12/01/2024 7:21 A M HEARING AID ASSEMBLY SUPERVISOR Height 175.3 cm (5' 9 ) 12/01/2024 7:21 AM HEARING AID ASSEMBLY SUPERVISOR Body Mass Index 25.26 12/01/2024 7:21 AM HEARING AID ASSEMBLY SUPERVISOR Plan of Treatment Health Maintenance Due Date Last Done Comments PAP SMEAR 2000 HIV SCREENING 2015 HPV VACCINE (1 - 3-dose series) 2015 CHLAMYDIA/GONORRHEA SCREENING 2016 09/03/2013, 07/09/2007 HEPATITIS C SCREENING 04/11/2018 DTAP/TDAP/TD VACCINES (1 - Tdap) 2019 HEPATITIS B VACCINE (1 of 3 - 19+ 3-dose series) 2019 COVID-19 VACCINE ( - season) 2024 DEPRESSION SCREENING 11/05/2024 INFLUENZA VACCINE [...] on patient's age to complete this topic Care Teams Lead Technologist In Cytogenetics Relationship Specialty Start Date End Date Viry East [address] [facility] [address] [place] [id number] PCP - General 12/01/24
--- OUTSIDE RECORDS SUMMARY | 2025-03-03 07:04 | XMS_ITS | Clinical Summary ---
Author Organization [facility] Address [address] [place] [address] Care Team Providers Care Ecosystem Ecology Professor Name Role Phone None, Provider MD Primary [...] CDT - 02/12/2025 7:07 PM CDT Emergency [facility] Emergency [address] [place] [address] Franco Godoy, SEATER ASSEMBLER Skin Problem Discharge Disposition: Home or Self Care (Routine Discharge) 02/12/2025 Travel 02/09/2025 8:02 AM CDT - 02/09/2025 9:59 AM CDT Emergency [facility] Emergency [address] [place] [address] Shun Ingram, WEAPONS OFFICER Abscess Discharge Disposition: Home or Self Care [...] 4:36 PM Narrative 02/12/2025 4:41 PM CDT [facility] [address] [place], [place] [address] Examination: CT PEL W CON Exam time: [...] Procedure Note Sheldon Gaytan MD - 02/12/2025 [facility] [address] [place], [place] [address] Examination: CT PEL W CON Exam time: [...] MD, 02/12/2025 4:36 PM us Franco Godoy SEATER ASSEMBLER CT Final Result * (ABNORMAL) COMPREHENSIVE METABOLIC PANEL (02/12/2025 2:05 PM CDT) SODIUM S/P/B 135(L) 136 - 145 MMOL/L 02/12/2025 2:43 PM CDT [facility] POTASSIUM S/P/B 4.1 3.5 - 5.1 MMOL/L 02/12/2025 2:43 PM CDT [facility] CHLORIDE S/P/B 106 97 - 115 MMOL/L 02/12/2025 2:43 PM CDT [facility] CO2 22.7 21.0 - 32.0 MMOL/L 02/12/2025 2:43 PM CDT [facility] GLUCOSE 88 74 - 106 MG/DL 02/12/2025 2:43 PM CDT [facility] BUN 13 7 - 18 MG/DL 02/12/2025 2:43 PM CDT [facility] CREATININE S/P/B 0.92 0.55 - 1.02 MG/DL 02/12/2025 2:43 PM CDT [facility] CALCIUM S/P/B 9.0 8.5 - 10.1 MG/DL 02/12/2025 2:43 PM T [facility] BILIRUBIN TOTAL S/P/B 0.4 0.2 - 1.0 MG/DL 02/12/2025 2:43 PM CDT [facility] ALKALINE PHOSPHATASE S/P/B 97 37 - 98 U/L 02/12/2025 2:43 PM CDT [facility] AST 16 15 - 37 U/L 02/12/2025 2:43 PM T [facility] ALT 16 13 - 56 U/L 02/12/2025 2:43 PM T [facility] TOTAL PROTEIN S/P/B 7.4 6.4 - 8.2 G/DL 02/12/2025 2:43 PM CDT [facility] ALBUMIN S/P/B 3.7 3.4 - 5.0 G/DL 02/12/2025 2:43 PM T [facility] ANION GAP 6.3 2.0 - 10.0 MMOL/L 02/12/2025 2:43 PM T [facility] OSMOLALITY (CALC) 280 MOSM/KG 025 2:43 PM T [facility] Comment:REFERENCE RANGE NOT ESTABLISHED GFR ESTIMATE 89(L) >90 ML/MIN/1. 73 M2 02/12/2025 2:43 PM T [facility] GFR NOTES GFR REFERENCE S: 02/12/2025 2:43 PM T [facility] Comment: THE ESTIMATED GFR [...] NP LABORATORY Final Result Performing Organization Address [facility] de Phone Number [facility] [address] [place] [address], [phone] * HCG QUANT SERUM - CHORIONIC GONADOTROPIN () (02/12/2025 2:05 PM CDT) Only the most recent of2 resultswithin the time period is included. HCG QUANTITATIVE <1 MIU/ML 02/13/20 2:43 PM CDT [facility] Comment: <5 IS NEGATIVE 5-25 IS BORDERLINE >25 IS POSITIVE ASSAY PERFORMED BY CHEMILUMINESCENCE METHODOLOGY USING SIEMENS DIMENSION VISTA REAGENT. PATIENT RESULTS DETERMINED BY ASSAYS USING DIFFERENT MANUFACTURERS FOR METHODS MAY NOT BE COMPARABLE. 02/12/2025 2:05 PM CDT Franco Godoy NP LABORATORY Final Result Performing Organization Address [facility] de Phone Number [facility] [address] [place] [address], [phone] * (ABNORMAL) CBC W/DIFF AUTOMATED (02/12/2025 2:05 PM CDT) Only the most recent of2 resultswithin the time period is included. WBC 10.90(H) 4.00 - 10.80 x10'3/uL 02/12/2025 2:20 PM CDT [facility] RBC 4.47 4.10 - 5.40 x10'6/uL 02/12/2025 2:20 PM CDT [facility] HGB 13.0 12.0 - 16.0 G/DL 02/12/2025 2:20 PM CDT [facility] HCT 39.1 36.0 - 47.0 % 02/12/2025 2:20 PM CDT [facility] MCV 87.5 78.0 - 100.0 FL 02/12/2025 2:20 PM CDT [facility] MCH 29.1 27.0 - 31.0 PG 02/12/2025 2:20 PM CDT [facility] MCHC 33.2 33.0 - 36.0 G/DL 02/12/2025 2:20 PM CDT [facility] RDW 14.0 11.5 - 14.5 % 02/12/2025 2:20 PM CDT [facility] PLT 306 150 - 350 x10'3/uL 02/12/2025 2:20 PM CDT [facility] MPV 10.8(H) 7.4 - 10.4 FL 02/12/2025 2:20 PM CDT [facility] DIFFERENTIAL TYPE AUTOMATED DIFFERENTIAL 02/12/2025 2:20 PM CDT [facility] SEG NEUTROPHILS 71.3 % 2:20 PM CDT [facility] LYMPHOCYTES 15.0 % 02/12/2025 2:20 PM CDT [facility] MONOCYTES 7.0 % 02/12/2025 2:20 PM CDT [facility] EOSINOPHILS 5.8 % 02/12/2025 2:20 PM CDT [facility] BASOPHILS 0.7 % 02/12/2025 2:20 PM CDT [facility] IMMATURE GRANS % 0.2 % 02/13/20 2:20 PM CDT [facility] ABS. NEUTROPHILS 7.77 1.60 - 8.30 x10'3/uL 02/12/2025 2:20 PM CDT [facility] ABS. LYMPHOCYTES 1.64 0.80 - 4.70 x10'3/uL 02/12/2025 2:20 PM CDT [facility] ABS. MONOCYTES 0.76 0.00 - 1.50 x10'3/uL 02/12/2025 2:20 PM CDT [facility] ABS. EOSINOPHILS 0.63(H) 0.00 - 0.40 x10'3/uL 02/12/2025 2:20 PM CDT [facility] ABS. BASOPHILS 0.08 0.00 - 0.20 x10'3/uL 02/12/2025 2:20 PM CDT [facility] ABS. IMMATURE GRANULOCYTES 0.02 0.00 - 0.03 x10'3/uL 02/12/2025 2:20 PM CDT [facility] ABS. NUCLEATED RBC'S 0.00 0.00 - 0.01 x10'3/uL 02/12/2025 2:20 PM CDT [facility] NRBC % 0.0 % 02/12/2025 2:20 PM CDT [facility] 02/12/2025 2:05 PM CDT us Franco Godoy NP LABORATORY Final Result [facility] [address] [place] [phone], [phone] * (ABNORMAL) BASIC METABOLIC PANEL (02/09/2025 8:29 AM CDT) SODIUM S/P/B 140 136 - 145 MMOL/L 02/09/2025 9:08 AM CDT [facility] POTASSIUM S/P/B 3.8 3.5 - 5.1 MMOL/L 02/09/2025 9:08 AM CDT [facility] CHLORIDE S/P/B 105 97 - 115 MMOL/L 02/09/2025 9:08 AM CDT [facility] CO2 23.3 21.0 - 32.0 MMOL/L 02/09/2025 9:08 AM [facility] GLUCOSE 91 74 - 106 MG/DL 02/09/2025 9:08 AM [facility] BUN 16 7 - 18 MG/DL 02/09/2025 9:08 AM [facility] CREATININE S/P/B 0.90 0.55 - 1.02 MG/DL 02/09/2025 9:08 AM T [facility] CALCIUM S/P/B 9.4 8.5 - 10.1 MG/DL 02/09/2025 9:08 AM T [facility] ANION GAP 11.7(H) 2.0 - 10.0 MMOL/L 02/09/2025 9:08 AM [facility] OSMOLALITY (CALC) 291 MOSM/KG 025 9:08 AM [facility] Comment:REFERENCE RANGE NOT ESTABLISHED GFR ESTIMATE >90 >90 ML/MIN/1. 73 M2 02/09/2025 9:08 AM [facility] GFR NOTES GFR REFERENCE S: 02/09/2025 9:08 AM [facility] Comment: THE ESTIMATED GFR IS [...] m2 02/09/2025 8:29 AM CDT Shun Ingram WEAPONS OFFICER LABORATORY Final Resul t [facility] [address] [place] [address], [phone] from Last [address] [place] [address] [place] [address] [facility] Care Teams Ecosystem Ecology Professor Relationship Specialty Start Date End Date None, Provider, MD PCP - General UNKNOWN PHYSICIAN SPECIALTY 02/09/25
--- OUTSIDE RECORDS SUMMARY | 2025-03-03 07:04 | XMS_ITS | Clinical Summary ---
Author Organization [facility] Address [address] [place] [address] Phone Care Team Providers Care Tape Rules Printing Machine Operator Name Role Phone Lizette Barragan Primary Care Provider [phone] Allergies No known active allergies Medications fluticasone [...] Type Department Care Team Description 02/24/[address] [place] [phone] Lizette Barragan DO Medication Problem 02/18/2025 Telephone [facility] [address] [facility] [address] [place] [phone] Lizette Barragan DO Needs Orders Written 02/17/2025 External Device Data STL ABSTRACTION Provider, Abstract 02/17/2025 Refill [facility] [address] [facility] [address] [place] [phone] Viry East, PLATE GLASS INSTALLER HELPER Mild intermittent asthma with acute exacerbation; PTSD (post-traumatic stress disorder); SHANDRA (generalized anxiety disorder); Moderate episode of recurrent major depressive disorder ([facility]/HCC) 02/03/2025 External Device Data STL ABSTRACTION Provider, Abstract 01/21/2025 External Device Data STL ABSTRACTION Provider, Abstract 01/13/2025 10:30 AM CDT Video Visit [facility] [id number] [place] [address] [address] [place] [address] Viry East, CARLOS MANUEL PTSD (post-traumatic stress [...] STL ABSTRACTION Provider, Abstract 12/03/2024 Orders Only [address] [place] [phone] Lizette Barragan DO Primary insomnia 12/03/[address] [place] [phone] Lizette Barragan DO Provider Call from Last [...] Comments Blood Pressure 108/68 10/22/2024 12:48 PM LAND DEGRADATION ANALYST Pulse 73 10/22/2024 12:48 PM LAND DEGRADATION ANALYST Temperature 36.6 C (97.8 F) 05/01/2024 6:04 PM CDT Respiratory Rate 16 05/01/2024 6:04 PM CDT Oxygen Saturation 98% 10/22/2024 12:48 PM LAND DEGRADATION ANALYST Inhaled Oxygen Concentration - - Weight 78.9 kg (174 lb) 01/13/2025 10:26 AM CDT Height 172.7 cm (5' 8 ) 01/13/2025 10:26 AM CDT Body Mass Index 26.46 01/13/2025 10:26 AM CDT Plan of Treatment Upcoming Encounters Date Type Department Care Team (Late st Contact Info) Description 03/06/2025 11:00 AM CDT Video Visit [address] [place] [phone] Viry East, [facility] [id number] [place] [address] [place] [phone] 07/16/2025 2:30 PM CDT Office Visit [address] [place] [phone] Lizette Barragan [place] [id number] [place] [phone] Health Maintenance Due Date Last Done Comments HPV VACCINES (3 - 2-dose series) 12/18/2011 09/25/20 11, 05/22/2011 CERVICAL CANCER SCREENING 2021 HPV/Cotest (21-29) 2021 PAP SMEAR 2021 DTAP/TDAP/TD VACCINES (7 - T d or Tdap) 05/22/2021 05/22/2011, 05/17/2011, 05/22/2005, Additional history exists INFLUENZA VACCINE (#1) 2024 6, 09/25/2011, 10/22/2007, Additional history exists HEPATITIS B VACCINES Completed 06/21/2004, 2000, 2000 Care Teams Tape Rules Printing Machine Operator Relationship Specialty Start Date End Date [place] [id number] [phone] PCP - General Family Practice 10/22/24
--- NOTE | 2025-03-03 07:07 | ED_ITS ---
HPI - Anxiety General Chief Complaint: Anxiety Stated Complaint: anxiety Time Seen by Provider: 03/03/25 07:06 Source: patient Mode of arrival: ambulatory Limitations: no limitations History of Present Illness HPI narrative: Patient is a 24-year-old female with panic and anxiety this morning secondary to multiple life stressors. She has no suicide or homicide ideation. She is sad due to her dog dying and family issues etc.. patient is not sleeping. She is having trouble working. as an aside, the asthma is well controlled at this time. As a note, the patient is on steroids. MD complaint: anxiety and heart racing Onset (ago): day(s) ( Two days) Symptoms: chest pain, palpitations and sense of impending doom Severity: moderate Quality: constant Place: home History of similar episodes: Yes Provoking factors: emotional stress, work/job stress, medication change ( Patient currently is on steroids from asthma attack) and recent /illness of family member Relieving factors: nothing Exacerbating factors: thinking about event Associated symptoms: chest pain, palpitations and malaise Related Data Allergies Allergy/AdvReac Type Severity Reaction Status Date / Time No Known Allergies Allergy Verified 03/03/25 07:07 Review of Systems Review of Systems: All systems reviewed & are unremarkable except as noted in HPI and below Constitutional: Constitutional: Reports no additional constitutional complaints Eyes: Eyes: Reports no additional eye complaints ENT: Reports system reviewed and no additional complaints, except as documented Cardiovascular: Cardiovascular: Reports no additional cardiovascular complaints Respiratory: Respiratory: Reports no additional respiratory complaints Gastrointestinal: Gastrointestinal: Reports no additional gastrointestinal complaints Genitourinary: Genitourinary: Reports no additional female genitourinary complaints Musculoskeletal: Musculoskeletal: Reports no additional musculoskeletal complaints Integumentary/Breasts: Skin/Breast: Reports system reviewed and no additional complaints, except as docu Neurologic: Reports system reviewed and no additional complaints, except as documented Psychiatric: Psychiatric: Reports no additional psychiatric complaints Endocrine: Endocrine: Reports no additional endocrine complaints Hematologic/Lymphatic: Hematologic/Lymphatic: Reports no additional hematol ogic/lymphatic complaints Allergic/Immunologic: Allergic/Immunologic: Reports no additional allergic/immunologic complaints PMFSH Past Medical History Medical History Anxiety and depression Chronic recurrent pilonidal cyst Exam Const: General: healthy appearing Nutritional Appearance: well nourished Orientation/consciousness: patient oriented x3 HENMT: Head: normal to inspection Ears: external ears normal Face/Nose/Sinus: Normal external nose present Eyes: Conjunctivae: conjunctivae normal Pupils: Equal, round and reactive pupils present EOM: EOMs intact bilaterally Neck: Neck: normal visual inspection Chest: Chest palpation & inspection: normal inspection of the chest Resp: Effort & Inspection: normal respiratory effort and not labored Auscultation: clear to auscultation bilaterally and no crackles Cardio: Rate: regular rate Rhythm: regular rhythm Heart sounds: no murmurs GI: Inspection: non-distended GI Palp: Yes Soft to palpation and No Tenderness to palpation present (GI) Auscultation: normal bowel sounds : General: Yes bladder normal to palpation Back/Spine/Pelvis: Back: no CVA tenderness Skin: General skin exam: normal color Rashes: no rashes Wounds: no wounds Neuro: General: patient oriented x3 Cranial nerves: Yes Nystagmus not present Speech: normal speech Gait exam (Neuro): Normal gait present Extrem: General: normal to inspection Psych: Mental Status: mental status grossly normal Affect: No normal affect, Sad affect present and Anxious affect present Attitude: cooperative Other: no suicide or homicide ideation Course Vital Signs Vital signs: Vital Signs Temperature 36.7 C 03/03/25 07:02 Pulse Rate 85 03/03/25 07:02 Respiratory Rate 18 03/03/25 07:02 Blood Pressure 120/88 03/03/25 07:02 Pulse Oximetry 98 03/03/25 07:02 Oxygen Delivery Room Air 03/03/25 07:02 Temperature 36.7 C 03/03/25 07:02 Pulse Rate 85 03/03/25 07:02 Respiratory Rate 18 03/03/25 07:02 Blood Pressure 120/88 03/03/25 07:02 Pulse Oximetry 98 03/03/25 07:02 Oxygen Delivery Room Air 03/03/25 07:02 MDM - Anxiety MDM Narrative Medical decision making narrative: patient is a 24-year-old female with a panic and anxiety attack this morning. She has multiple life stressors. We will give her Ativan p.o. x1 now. If this works well we will write her a script for this medication for both sleep and panic. Further we will give her off work note for 2 days. Discussed with patient that she may stop the steroids as it was less than 5 days course. Discharge Plan Discharge Clinical Impression: Acute anxiety Patient Disposition: Home Condition: Stable Instructions: Anxiety (ED) Patient Language: Danish Prescriptions: New lorazepam [Ativan] 0.5 mg tablet 0.5 mg PO BID PRN (Reason: anxiety) Qty: 14 0RF No Action fluticasone propionate 110 mcg/actuation HFA aerosol inhaler 1 puff inhalation BID Qty: 12 0RF albuterol sulfate [Ventolin HFA] 90 mcg/actuation HFA aerosol inhaler 2 inh inhalation QID PRN (Reason: shortness of breath or wheezing) Qty: 6.7 0RF prednisone 20 mg tablet 40 mg PO DAILY 4 Days Qty: 8 0RF azithromycin 250 mg tablet See Rx Instructions .ROUTE .COMPLEX Qty: 6 0RF Rx Instructions: For 250 mg dose pack: take 500 mg today (day 1), then 250 mg for 4 days (days 2-5) albuterol sulfate 2.5 mg /3 mL (0.083 %) solution for nebulization 2.5 mg inhalation Q6H Qty: 75 0RF Follow-up/Referrals: Josh Sterling MD [Primary Care Provider] - Stand Alone Forms: Work/School Release IP Time of Disposition: 07:42
[2025-03-03] MEDS: LORazepam (*CRX) 0.5 MG TABLET PO (07:40)
--- OUTSIDE RECORDS SUMMARY | 2025-03-03 07:54 | XMS_ITS | Clinical Summary ---
Author Organization [facility] Address [address] [place] [address] Phone Care Team Providers Care Starbucks Barista Name Role Phone Lizette Barragan Primary Care [...] Type Department Care Team Description 02/24/[address] [place] [phone] Lizette Barragan DO Medication Problem 02/18/2025 Telephone [facility] [address] [facility] [address] [place] [phone] Lizette Barragan DO Needs Orders Written 02/17/2025 External Device Data STL ABSTRACTION Provider, Abstract 02/17/2025 Refill [facility] [address] [facility] [address] [place] [phone] Viry East, GARMENT MANUFACTURER Mild intermittent asthma with acute exacerbation; PTSD (post-traumatic stress disorder); SHANDRA (generalized anxiety disorder); Moderate episode of recurrent major depressive disorder ([facility]/HCC) 02/03/2025 External Device Data STL ABSTRACTION Provider, Abstract 01/21/2025 External Device Data STL ABSTRACTION Provider, Abstract 01/13/2025 10:30 AM CDT Video Visit [facility] [id number] [place] [address] [address] [place] [phone] Viry East, CARLOS MANUEL PTSD (post-traumatic stress [...] STL ABSTRACTION Provider, Abstract 12/03/2024 Orders Only [address] [place] [phone] Lizette Barragan DO Primary insomnia 12/03/[address] [place] [phone] Lizette Barragan DO Provider Call from Last [...] Comments Blood Pressure 108/68 10/22/2024 12:48 PM SUPERVISOR TELEPHONE CLERKS Pulse 73 10/22/2024 12:48 PM SUPERVISOR TELEPHONE CLERKS Temperature 36.6 C (97.8 F) 05/01/2024 6:04 PM CDT Respiratory Rate 16 05/01/2024 6:04 PM CDT Oxygen Saturation 98% 10/22/2024 12:48 PM SUPERVISOR TELEPHONE CLERKS Inhaled Oxygen Concentration - - Weight 78.9 kg (174 lb) 01/13/2025 10:26 AM CDT Height 172.7 cm (5' 8 ) 01/13/2025 10:26 AM CDT Body Mass Index 26.46 01/13/2025 10:26 AM CDT Plan of Treatment Upcoming Encounters Date Type Department Care Team (Late st Contact Info) Description 03/06/2025 11:00 AM CDT Video Visit [address] [place] [phone] Viry East, [facility] [id number] [place] [address] [place] [phone] 07/16/2025 2:30 PM CDT Office Visit [address] [place] [phone] [place] [id number] [place] [phone] Health Maintenance Due Date Last Done Comments HPV VACCINES (3 - 2-dose series) 12/18/2011 09/25/20 11, 05/22/2011 CERVICAL CANCER SCREENING 2021 HPV/Cotest (21-29) 2021 PAP SMEAR 2021 DTAP/TDAP/TD VACCINES (7 - T d or Tdap) 05/22/2021 05/22/2011, 05/17/2011, 05/22/2005, Additional history exists INFLUENZA VACCINE (#1) 2024 6, 09/25/2011, 10/22/2007, Additional history exists HEPATITIS B VACCINES Completed 06/21/2004, 2000, 2000 Care Teams Starbucks Barista Relationship Specialty Start Date End Date Lizette [place] [id number] [phone] PCP - General Family Practice 10/22/24
--- OUTSIDE RECORDS SUMMARY | 2025-03-03 07:54 | XMS_ITS | Clinical Summary ---
Author Organization [facility] Address [address] [place] [address] Care Team Providers Care Senior Microsoft Consultant Name Role Phone Viry East Primary Care Provider [phone] Source Comments [facility],non-owned Affiliates and Associated Physician Practices is amultiple site organization consisting of ambulatory clinics and hospital sitesin [place], [place] and [place]. This disclosure is being madepursuant to the Care Everywhere program and may not contain all information available regarding this patient. Last updated 18.[facility] Allergies No known active allergies Medications * [...] Comments Blood Pressure 98/69 12/01/2024 9:00 AM VEGETABLE CANNER Pulse 77 12/01/2024 7:21 AM VEGETABLE CANNER Temperature 36.3 C (97.4 F) 12/01/2024 7:21 AM VEGETABLE CANNER Respiratory Rate 20 12/01/2024 7:21 AM VEGETABLE CANNER Oxygen Saturation 96% 12/01/2024 9:00 AM VEGETABLE CANNER Inhaled Oxygen Concentration - - Weight 77.6 kg (171 lb 1.2 oz) 12/01/2024 7:21 A M VEGETABLE CANNER Height 175.3 cm (5' 9 ) 12/01/2024 7:21 AM VEGETABLE CANNER Body Mass Index 25.26 12/01/2024 7:21 AM VEGETABLE CANNER Plan of Treatment Health Maintenance Due Date [...] age to complete this topic Care Teams Senior Microsoft Consultant Relationship Specialty Start Date End Date Viry East [address] [facility] [address] [place] [phone] PCP - General 12/01/24
--- OUTSIDE RECORDS SUMMARY | 2025-03-03 07:54 | XMS_ITS | Clinical Summary ---
Author Organization [facility] Address [address] [place] [address] Care Team Providers Care Core Fitter Name Role Phone None, Provider MD Primary [...] CDT - 02/12/2025 7:07 PM CDT Emergency [facility] Emergency [address] [place] [address] Franco Godoy, HEEL GOUGER Skin Problem Discharge Disposition: Home or Self Care (Routine Discharge) 02/12/2025 Travel 02/09/2025 8:02 AM CDT - 02/09/2025 9:59 AM CDT Emergency [facility] Emergency [address] [place] [address] Shun Ingram, COSMETIC CONSULTANT Abscess Discharge Disposition: Home or Self Care [...] 4:36 PM Narrative 02/12/2025 4:41 PM CDT [facility] [address] [place], [place] [address] Examination: CT PEL W CON Exam time: [...] Procedure Note Sheldon Gaytan MD - 02/12/2025 [facility] [address] [place], [place] [address] Examination: CT PEL W CON Exam time: [...] MD, 02/12/2025 4:36 PM us Franco Godoy HEEL GOUGER CT Final Result * (ABNORMAL) COMPREHENSIVE METABOLIC PANEL (02/12/2025 2:05 PM CDT) SODIUM S/P/B 135(L) 136 - 145 MMOL/L 02/12/2025 2:43 PM CDT [facility] POTASSIUM S/P/B 4.1 3.5 - 5.1 MMOL/L 02/12/2025 2:43 PM CDT [facility] CHLORIDE S/P/B 106 97 - 115 MMOL/L 02/12/2025 2:43 PM CDT [facility] CO2 22.7 21.0 - 32.0 MMOL/L 02/12/2025 2:43 PM CDT [facility] GLUCOSE 88 74 - 106 MG/DL 02/12/2025 2:43 PM CDT [facility] BUN 13 7 - 18 MG/DL 02/12/2025 2:43 PM CDT [facility] CREATININE S/P/B 0.92 0.55 - 1.02 MG/DL 02/12/2025 2:43 PM CDT [facility] CALCIUM S/P/B 9.0 8.5 - 10.1 MG/DL 02/12/2025 2:43 PM T [facility] BILIRUBIN TOTAL S/P/B 0.4 0.2 - 1.0 MG/DL 02/12/2025 2:43 PM CDT [facility] ALKALINE PHOSPHATASE S/P/B 97 37 - 98 U/L 02/12/2025 2:43 PM CDT [facility] AST 16 15 - 37 U/L 02/12/2025 2:43 PM T [facility] ALT 16 13 - 56 U/L 02/12/2025 2:43 PM T [facility] TOTAL PROTEIN S/P/B 7.4 6.4 - 8.2 G/DL 02/12/2025 2:43 PM CDT [facility] ALBUMIN S/P/B 3.7 3.4 - 5.0 G/DL 02/12/2025 2:43 PM T [facility] ANION GAP 6.3 2.0 - 10.0 MMOL/L 02/12/2025 2:43 PM T [facility] OSMOLALITY (CALC) 280 MOSM/KG 025 2:43 PM T [facility] Comment:REFERENCE RANGE NOT ESTABLISHED GFR ESTIMATE 89(L) >90 ML/MIN/1. 73 M2 02/12/2025 2:43 PM T [facility] GFR NOTES GFR REFERENCE S: 02/12/2025 2:43 PM T [facility] Comment: THE ESTIMATED GFR IS [...] NP LABORATORY Final Result Performing Organization Address [facility] de Phone Number [facility] [address] [place] [address], [phone] * HCG QUANT SERUM - CHORIONIC GONADOTROPIN () (02/12/2025 2:05 PM CDT) Only the most recent of2 resultswithin the time period is included. HCG QUANTITATIVE <1 MIU/ML 02/13/20 2:43 PM CDT [facility] Comment: <5 IS NEGATIVE 5-25 IS BORDERLINE >25 IS POSITIVE ASSAY PERFORMED BY CHEMILUMINESCENCE METHODOLOGY USING SIEMENS DIMENSION VISTA REAGENT. PATIENT RESULTS DETERMINED BY ASSAYS USING DIFFERENT MANUFACTURERS FOR METHODS MAY NOT BE COMPARABLE. 02/12/2025 2:05 PM CDT Franco Godoy NP LABORATORY Final Result Performing Organization Address [facility] de Phone Number [facility] [address] [place] [address], [phone] * (ABNORMAL) CBC W/DIFF AUTOMATED (02/12/2025 2:05 PM CDT) Only the most recent of2 resultswithin the time period is included. WBC 10.90(H) 4.00 - 10.80 x10'3/uL 02/12/2025 2:20 PM CDT [facility] RBC 4.47 4.10 - 5.40 x10'6/uL 02/12/2025 2:20 PM CDT [facility] HGB 13.0 12.0 - 16.0 G/DL 02/12/2025 2:20 PM CDT [facility] HCT 39.1 36.0 - 47.0 % 02/12/2025 2:20 PM CDT [facility] MCV 87.5 78.0 - 100.0 FL 02/12/2025 2:20 PM CDT [facility] MCH 29.1 27.0 - 31.0 PG 02/12/2025 2:20 PM CDT [facility] MCHC 33.2 33.0 - 36.0 G/DL 02/12/2025 2:20 PM CDT [facility] RDW 14.0 11.5 - 14.5 % 02/12/2025 2:20 PM CDT [facility] PLT 306 150 - 350 x10'3/uL 02/12/2025 2:20 PM CDT [facility] MPV 10.8(H) 7.4 - 10.4 FL 02/12/2025 2:20 PM CDT [facility] DIFFERENTIAL TYPE AUTOMATED DIFFERENTIAL 02/12/2025 2:20 PM CDT [facility] SEG NEUTROPHILS 71.3 % 2:20 PM CDT [facility] LYMPHOCYTES 15.0 % 02/12/2025 2:20 PM CDT [facility] MONOCYTES 7.0 % 02/12/2025 2:20 PM CDT [facility] EOSINOPHILS 5.8 % 02/12/2025 2:20 PM CDT [facility] BASOPHILS 0.7 % 02/12/2025 2:20 PM CDT [facility] IMMATURE GRANS % 0.2 % 02/13/20 2:20 PM CDT [facility] ABS. NEUTROPHILS 7.77 1.60 - 8.30 x10'3/uL 02/12/2025 2:20 PM CDT [facility] ABS. LYMPHOCYTES 1.64 0.80 - 4.70 x10'3/uL 02/12/2025 2:20 PM CDT [facility] ABS. MONOCYTES 0.76 0.00 - 1.50 x10'3/uL 02/12/2025 2:20 PM CDT [facility] ABS. EOSINOPHILS 0.63(H) 0.00 - 0.40 x10'3/uL 02/12/2025 2:20 PM CDT [facility] ABS. BASOPHILS 0.08 0.00 - 0.20 x10'3/uL 02/12/2025 2:20 PM CDT [facility] ABS. IMMATURE GRANULOCYTES 0.02 0.00 - 0.03 x10'3/uL 02/12/2025 2:20 PM CDT [facility] ABS. NUCLEATED RBC'S 0.00 0.00 - 0.01 x10'3/uL 02/12/2025 2:20 PM CDT [facility] NRBC % 0.0 % 02/12/2025 2:20 PM CDT [facility] 02/12/2025 2:05 PM CDT us Franco Godoy NP LABORATORY Final Result [facility] [address] [place] [id number], [id number] * (ABNORMAL) BASIC METABOLIC PANEL (02/09/2025 8:29 AM CDT) SODIUM S/P/B 140 136 - 145 MMOL/L 02/09/2025 9:08 AM CDT [facility] POTASSIUM S/P/B 3.8 3.5 - 5.1 MMOL/L 02/09/2025 9:08 AM CDT [facility] CHLORIDE S/P/B 105 97 - 115 MMOL/L 02/09/2025 9:08 AM CDT [facility] CO2 23.3 21.0 - 32.0 MMOL/L 02/09/2025 9:08 AM [facility] GLUCOSE 91 74 - 106 MG/DL 02/09/2025 9:08 AM [facility] BUN 16 7 - 18 MG/DL 02/09/2025 9:08 AM [facility] CREATININE S/P/B 0.90 0.55 - 1.02 MG/DL 02/09/2025 9:08 AM T [facility] CALCIUM S/P/B 9.4 8.5 - 10.1 MG/DL 02/09/2025 9:08 AM T [facility] ANION GAP 11.7(H) 2.0 - 10.0 MMOL/L 02/09/2025 9:08 AM [facility] OSMOLALITY (CALC) 291 MOSM/KG 025 9:08 AM [facility] Comment:REFERENCE RANGE NOT ESTABLISHED GFR ESTIMATE >90 >90 ML/MIN/1. 73 M2 02/09/2025 9:08 AM [facility] GFR NOTES GFR REFERENCE S: 02/09/2025 9:08 AM [facility] Comment: THE ESTIMATED GFR [...] m2 02/09/2025 8:29 AM CDT Shun Ingram COSMETIC CONSULTANT LABORATORY Final Resul t [facility] [address] [place] [address], [id number] from Last [address] [place] [address] DIVISION [facility] Care Teams Core Fitter Relationship Specialty Start Date End Date None, Provider, MD PCP - General UNKNOWN PHYSICIAN SPECIALTY 02/09/25
== END 2025-03-03 07:52 | disposition home or self-care (01) ==
LOC: CHSED 07:50
PROVIDERS: Emergency Provider Emergency Medicine; PCP Internal Medicine
DX: F41.9 Anxiety disorder, unspecified (principal)
CPT/HCPCS: 99283; A9270

== ENCOUNTER 2025-08-10 11:35 | Emergency (ER) | payer SELFPAY ==
--- NOTE | ~2025-08-10 | XR_ITS ---
EXAMINATION: XR chest 2V, 08/10/2025 12:20 CDT HISTORY: sob COMPARISON: No comparisons available. Technique: 2 views obtained. Findings: The lungs are clear, no effusion. No pneumothorax. Heart is normal size. Mediastinal and hilar contours are within normal limits. Bony thorax no acute abnormality. Impression: No acute cardiopulmonary abnormality. Reviewed, dictated and finalized at location P. Impression: No acute cardiopulmonary abnormality.
[2025-08-10 11:35] VITALS: O2SAT 98
[2025-08-10 11:36] VITALS: BP 125/87; PULSE 72; RESP 16; TEMP 36.6; O2SAT 98
--- NOTE | 2025-08-10 11:36 | ED_ITS ---
HPI - SOB/Dyspnea General Chief Complaint: Shortness of Breath/Dyspnea Stated Complaint: sob Time Seen by Provider: 08/10/25 11:36 History of Present Illness HPI Narrative: Pt presents with intermittent SOB for 3 weeks but getting worse and more persistent. Pt denies fever. Pt has some night seats. Pt has hx of asthma and is out of inhaler but has Rx ot pharmacy in [place]. Pt says used to be on advair and it helped. Pt has not been on steroids recently. Pt has non productive cough. Related Data Allergies Allergy/AdvReac Type Severity Reaction Status Date / Time No Known Allergies Allergy Verified 08/10/25 11:37 Review of Systems Review of Systems: All systems reviewed & are unremarkable except as noted in HPI and below PMFSH Past Medical History Medical History Anxiety and depression Chronic recurrent pilonidal cyst Social History Social History Substance use type: does not use Exam Const: General: healthy appearing and no acute distress Nutritional Appearance: well nourished Orientation/consciousness: patient oriented x3 Limitations: no limitations HENMT: Head: normal to inspection Chest: Chest palpation & inspection: normal inspection of the chest Resp: Effort & Inspection: normal respiratory effort Auscultation: wheezes Cardio: Rate: regular rate Rhythm: regular rhythm GI: GI Palp: Yes Soft to palpation and No Tenderness to palpation present (GI) Auscultation: normal bowel sounds Skin: General skin exam: normal color Rashes: no rashes Neuro: General: patient oriented x3, moves all extremities, no meningeal signs and no focal motor deficits Speech: normal speech Extrem: General: normal to inspection and no clubbing, cyanosis or edema Psych: Mental Status: mental status grossly normal Affect: normal affect Attitude: cooperative Course Vital Signs Vital signs: Vital Signs Pulse Oximetry 98 08/10/25 11:35 Oxygen Delivery Room Air 08/10/25 11:35 Temperature 98.7 F 08/10/25 12:41 Pulse Rate 80 08/10/25 12:41 Respiratory Rate 16 08/10/25 12:41 Blood Pressure 112/69 08/10/25 12:41 Pulse Oximetry 99 08/10/25 12:41 Oxygen Delivery Room Air 08/10/25 12:41 Oxygen Flow Rate 0 08/10/25 11:51 MDM - SOB/Dyspnea MDM Narrative Medical decision making narrative: Pt presnts with sob and wheezing. likely asthma but will get cxr to rule out pneumonia. will give neb here and prescribe advair and prednisone as well. Pt better after neb, no longer wheezing. Differential Diagnosis Differential diagnosis: Likely community acquired pneumonia, asthma with exacerbation and other (bronchitis) Imaging Data Attestation: I personally reviewed and interpreted this imaging study as follows: My impression: napd Radiologist's impression: nt: Kinza Long : 2000 MR#: [id number] Age: 25 Acct:[id number] Loc: [facility] ADM Date: 08/10/[address]: Ordering Physician: Dom Grant III, DO Date of Service: 08/10/25 Procedure(s): XR chest 2V Accession Number(s): [id number] cc: Dom Grant III, DO; UNKNOWN,DOCTOR~ EXAMINATION: XR chest 2V, 08/10/2025 12:20 CDT HISTORY: sob COMPARISON: No comparisons available. Technique: 2 views obtained. Findings: The lungs are clear, no effusion. No pneumothorax. Heart is normal size. Mediastinal and hilar contours are within normal limits. Bony thorax no acute abnormality. Impression: No acute cardiopulmonary abnormality. Reviewed, dictated and finalized at location P. Please be advised this is a medical document. It is intended for [id number] communication. It is written in medical language and may contain unfamiliar abbreviations or verbiage. Medical documents are intended to carry relevant information, facts as evident, and the clinical opinion of the practitioner at the time of the encounter. This report may have been done utilizing a voice recognition system. Attempts have been made to correct errors. However, there may be uncorrected grammatical, spelling, and recognition errors present. The file time of this note does not necessarily represent the time of service. Dictated By: Richard Gonsales MD 08/10/25 1233 Signed By: <Electronically signed by Richard Gonsales MD in OV> 08/10/25 1234 Discharge Plan Discharge Clinical Impression: Asthma Patient Disposition: Home Condition: Improved Instructions: Antibiotic Form, Asthma (ED) Patient Language: Kuwaiti Prescriptions: New albuterol sulfate 2.5 mg /3 mL (0.083 %) solution for nebulization 2.5 mg inhalation Q4H PRN (Reason: shortness of breath or wheezing) Qty: 90 0RF prednisone 50 mg tablet 50 mg PO DAILY Qty: 5 0RF fluticasone propion-salmeterol [Advair Diskus] 100-50 mcg/dose blister with device 1 inh inhalation Q12H Qty: 60 0RF No Action lorazepam [Ativan] 0.5 mg tablet 0.5 mg PO BID PRN (Reason: anxiety) Qty: 14 0RF fluticasone propionate 110 mcg/actuation HFA aerosol inhaler 1 puff inhalation BID Qty: 12 0RF albuterol sulfate [Ventolin HFA] 90 mcg/actuation HFA aerosol inhaler 2 inh inhalation QID PRN (Reason: shortness of breath or wheezing) Qty: 6.7 0RF prednisone 20 mg tablet 40 mg PO DAILY 4 Days Qty: 8 0RF azithromycin 250 mg tablet See Rx Instructions .ROUTE .COMPLEX Qty: 6 0RF Rx Instructions: For 250 mg dose pack: take 500 mg today (day 1), then 250 mg for 4 days (days 2-5) albuterol sulfate 2.5 mg /3 mL (0.083 %) solution for nebulization 2.5 mg inhalation Q6H Qty: 75 0RF Follow-up/Referrals: UNKNOWN,DOCTOR [Primary Care Provider]
[2025-08-10 11:44] VITALS: PULSE 82; RESP 18; O2SAT 98
[2025-08-10] MEDS: IPRATROPIUM 0.5 MG/ALBUTEROL SULFATE 2.5 MG (BASE) AMPUL.NEB 3 ML INHALATION (11:44)
[2025-08-10 11:51] VITALS: PULSE 97; RESP 18; O2SAT 99
[2025-08-10 12:41] VITALS: BP 112/69; PULSE 80; RESP 16; TEMP 37.1; O2SAT 99
[2025-08-10 12:45] VITALS: BP 112/69; PULSE 80; RESP 16; TEMP 37.1; O2SAT 99
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
--- OUTSIDE RECORDS SUMMARY | 2025-08-10 13:06 | XMS_ITS | Clinical Summary ---
Author Organization [facility] [employer] Address [address] [place] [address] Care Team Providers Care Research Technician Name Role Phone [place] Primary Care Provider [phone] Source Comments [facility] [employer],non-owned Affiliates and Associated Physician Practices is amultiple site organization consisting of ambulatory clinics and hospital sitesin [place], [place], [place] and [place]. This disclosure is being madepursuant to the Care Everywhere program and may not contain all information available regarding this patient. Last updated 18.[facility] [employer] Allergies No known active allergies Medications * [...] Comments Blood Pressure 98/69 12/01/2024 9:00 AM AIRPLANE CLEANER Pulse 77 12/01/2024 7:21 AM AIRPLANE CLEANER Temperature 36.3 C (97.4 F) 12/01/2024 7:21 AM AIRPLANE CLEANER Respiratory Rate 20 12/01/2024 7:21 AM AIRPLANE CLEANER Oxygen Saturation 96% 12/01/2024 9:00 AM AIRPLANE CLEANER Inhaled Oxygen Concentration - - Weight 77.6 kg (171 lb 1.2 oz) 12/01/2024 7:21 A M AIRPLANE CLEAN[employer] Height 175.3 cm (5' 9) 12/01/2024 7:21 AM AIRPLANE CLEANER Body Mass Index 25.26 12/01/2024 7:21 AM AIRPLANE CLEANER Plan of Treatment Health Maintenance Due Date Last Done Comments HIV SCREENING 2015 HPV VACCINE (1 - 3-dose series) 2015 CHLAMYDIA/GONORRHEA SCREENING 2016 HEPATITIS C SCREENING 04/11/2018 DTAP/TDAP/TD VACCINES (1 - Tdap) 2019 HEPATITIS B VACCINE (1 of 3 - 19+ 3-dose series) 2019 PAP SMEAR 2021 DEPRESSION SCREENING 11/05/2024 COVID-19 VACCINE ( - season) 2025 INFLUENZA VACCINE (#1) 2025 6, 09/25/2011, 09/12/2010, Additional history exists ZOSTER VACCINE [...] age to complete this topic Care Teams Research Technician Relationship Specialty Start Date End Date [place] [address] [place] [address] PCP - General 12/01/24
== END 2025-08-10 12:45 | disposition home or self-care (01) ==
PROVIDERS: Emergency Provider Emergency Medicine
DX: J45.909 Unspecified asthma, uncomplicated (principal)
CPT/HCPCS: 71046; 94640; 99283

== ENCOUNTER 2025-09-16 22:50 | Emergency (ER) | payer SELFPAY ==
--- NOTE | ~2025-09-16 | XR_ITS ---
Examination: XR chest 1V portable Clinical History: Asthma Comparison: 08/10/2025 Technique: Portable AP Findings: Heart size normal. Lungs clear. No acute bony abnormality. IMPRESSION: 1. No acute cardiopulmonary findings given portable technique. Reviewed, dictated and finalized at location R. THE[employer] SPECIALIST
[2025-09-16 22:50] VITALS: BP 109/64; PULSE 89; RESP 28; TEMP 36.2; O2SAT 95
--- OUTSIDE RECORDS SUMMARY | 2025-09-16 22:52 | XMS_ITS | Clinical Summary ---
Author Organization [facility] Address [facility] [place] [address] Care Team Providers Care Associate Store Director Name Role Phone None, Provider MD Primary Care Provider Unavaila ble Allergies No known active allergies Medications sertraline (ZOLOFT) 50 MG tablet Take 1 tablet (50 mg total) by mouth daily. Active VENTOLIN HFA 108 (90 Base) MCG/ACT inhaler TAKE 2 PUFFS BY INHALATION EVERY 6 HOURS NEEDED FOR SHORTNESS OF BREATH Active Encounters Date Type Department Care Team Description 07/28/2025 11:56 AM CDT - 07/28/2025 1:27 PM CDT Emergency [facility] [address] [place], [place] [id number] Lance Banuelos MD Nasal Injury; Head Injury [...] patient's age to complete this topic Hepatitis A Vaccines Aged Out No long er eligible based [...] 12:55 PM Narrative 07/28/2025 12:58 PM CDT [address] [place] [address] EXAMINATION: CT FACIAL BONES WO CON, 07/28/2025 [...] Procedure Note Thanh Yuen MD - 07/28/[address] [place] [address] EXAMINATION: CT FACIAL BONES WO CON, 07/28/2025 [...] Result from Last 3 Months Care Teams Associate Store Director Relationship Specialty Start Date End Date None, Provider, PCP - General UNKNOWN PHYSICIAN SPECIALTY 02/09/25
--- NOTE | 2025-09-16 22:53 | ED.ASTHMA ---
HPI - Asthma General Chief Complaint: Upper Respiratory Infection Stated Complaint: asthma Time Seen by Provider: 09/16/25 22:53 Source: patient Mode of arrival: ambulatory History of Present Illness HPI Narrative: 25 years old white female came to the ED by private car complaining of nasal congestion, postnasal discharge, sore throat, coughing and wheezing started last night. History of asthma. Patient been using a nebulizer treatment at home without improvement. Patient's partner had similar symptoms Related Data Allergies Allergy/AdvReac Type Severity Reaction Status Date / Time No Known Allergies Allergy Verified 09/16/25 22:53 Review of Systems Review of Systems: All systems reviewed & are unremarkable except as noted in HPI and below PMFSH Past Medical History Medical History Anxiety and depression Chronic recurrent pilonidal cyst Social History Social History Substance use type: does not use Exam Narrative: General appearance: Well-developed, well-nourished Skin: Normal color Head: Normocephalic, nontraumatic Eyes: Clear conjunctiva ENT: Oropharyngeal erythema, nasal congestion Neck: Supple, nontender Chest and respiratory: Airway patent, no respiratory distress, no accessory muscle use, expiratory wheezing bilaterally Heart: Regular rate/rhythm Abdomen: Soft, nontender, no organomegaly, quiet bowel sounds . Musculoskeletal: Normal range of motion, nontender back Neurologic: Alert and oriented ?3, [employer] is normal as tested, no gross motor deficit Course Vital Signs Vital signs: Vital Signs Temperature 36.2 C L 09/16/25 22:50 Pulse Rate 89 09/16/25 22:50 Respiratory Rate 28 H 09/16/25 22:50 Blood Pressure 109/64 09/16/25 22:50 Pulse Oximetry 95 09/16/25 22:50 Oxygen Delivery Room Air 09/16/25 22:50 Temperature 36.2 C L 09/16/25 22:50 Pulse Rate 89 09/16/25 22:50 Respiratory Rate 28 H 09/16/25 22:50 Blood Pressure 109/64 09/16/25 22:50 Pulse Oximetry 95 09/16/25 22:50 Oxygen Delivery Room Air 09/16/25 22:50 MDM - Asthma MDM Narrative Medical decision making narrative: Patient came with upper respiratory viral infection like symptoms, history of asthma, more wheezing than usual, albuterol is not working. Vital signs are stable Physical examination showing expiratory wheezing bilaterally Differential diagnosis upper respiratory viral infection, asthma exacerbation Patient received 10 mg of albuterol, 0.5 of ipratropium nebulizer treatment, 60 mg prednisone p.o. with remarkable improvement. Peak flow prior to bronchodilator 250 after bronchodilator 500. Diagnosis upper respiratory viral infection, asthma exacerbation The pt was discharged to home.the pt,s condition upon discharge was fair,education was provided to the pt in reference to the final impression,discharge study results,treatment,prognosis and need for follow up . Differential Diagnosis Differential diagnosis: Likely other (As above) Lab Data Labs: Lab Results 09/16/25 Range/Units 23:12 Influenza A (RT-PCR) Negative (Negative) Influenza B (RT-PCR) Negative (Negative) RSV (RT-PCR) Negative (Negative) SARS-CoV-2 RNA (RT-PCR) Negative (Negative) Group A Strep (PCR) Not detected (Negative) Critical Care Time Critical Care Time Critical Care Time: No Discharge Plan Discharge Clinical Impression: Upper respiratory infection, Asthma Patient Disposition: Home Condition: Improved Instructions: Asthma (DC), Upper Respiratory Infection (ED) Additional Instructions: Return if symptoms are worsening , call your family physician for appointment, take Tylenol as as needed for aches and pain, continue home medications. Patient Language: Slovenian Prescriptions: New prednisone 20 mg tablet 40 mg PO DAILY 5 Days Qty: 10 0RF albuterol sulfate 2.5 mg /3 mL (0.083 %) solution for nebulization 2.5 mg inhalation Q6H Qty: 90 0RF montelukast [Singulair] 10 mg tablet 10 mg PO DAILY Qty: 30 0RF No Action lorazepam [Ativan] 0.5 mg tablet 0.5 mg PO BID PRN (Reason: anxiety) Qty: 14 0RF fluticasone propionate 110 mcg/actuation HFA aerosol inhaler 1 puff inhalation BID Qty: 12 0RF albuterol sulfate [Ventolin HFA] 90 mcg/actuation HFA aerosol inhaler 2 inh inhalation QID PRN (Reason: shortness of breath or wheezing) Qty: 6.7 0RF prednisone 20 mg tablet 40 mg PO DAILY 4 Days Qty: 8 0RF azithromycin 250 mg tablet See Rx Instructions .ROUTE .COMPLEX Qty: 6 0RF Rx Instructions: For 250 mg dose pack: take 500 mg today (day 1), then 250 mg for 4 days (days 2-5) albuterol sulfate 2.5 mg /3 mL (0.083 %) solution for nebulization 2.5 mg inhalation Q6H Qty: 75 0RF albuterol sulfate 2.5 mg /3 mL (0.083 %) solution for nebulization 2.5 mg inhalation Q4H PRN (Reason: shortness of breath or wheezing) Qty: 90 0RF prednisone 50 mg tablet 50 mg PO DAILY Qty: 5 0RF fluticasone propion-salmeterol [Advair Diskus] 100-50 mcg/dose blister with device 1 inh inhalation Q12H Qty: 60 0RF Follow-up/Referrals: UNKNOWN,DOCTOR [Non-Staff] Stand Alone Forms: Work/School Release IP
[2025-09-16] MEDS: IPRATROPIUM BR 0.02% INH SOLN 0.5 MG/2.5 ML VIAL INHALATION (23:16)
[2025-09-16] MEDS: ALBUTEROL SULFATE NEB 2.5 MG/3 ML INH 10 MG INHALATION (23:17)
[2025-09-16 23:43] LABS: Strep Group A RT-PCR NOT DETECTED (Negative)
--- NOTE | 2025-09-16 23:54 | PC.NURSE ---
PT CHECKED PER SEB GORDON. RESTING ON STRETCHER IN ED 1 ON BREATHING TX. CALL LIGHT WITHIN REACH.
[2025-09-16 23:55] LABS: Influenza A QL RT-PCR Negative (Negative); Influenza B QL RT-PCR Negative (Negative); RSV RNA, RT-PCR Negative (Negative); SARS-CoV-2 RNA PCR Negative (Negative)
[2025-09-17 00:25] VITALS: BP 124/77; PULSE 79; RESP 20; O2SAT 100
== END 2025-09-17 00:25 | disposition home or self-care (01) ==
PROVIDERS: Emergency Provider Emergency Medicine; Referring Provider Family Medicine
DX: J06.9 Acute upper respiratory infection, unspecified (principal); J45.909 Unspecified asthma, uncomplicated; Z20.822 Contact with and (suspected) exposure to COVID-19
CPT/HCPCS: 71045; 87637; 87651; 99283; J7512